=== PATIENT | male | born 1950 | race Caucasian/White ===

== ENCOUNTER 2017-10-25 12:19 | Emergency (ER) | payer OTHER ==
[2017-10-25 13:03] LABS: BASOPHILS % (AUTO) 0.7 %; EOSINOPHILS # (AUTO) 0.1 10^3/uL (0.0-0.7); EOSINOPHILS % (AUTO) 2.3 %; HGB - HEMOGLOBIN 16.1 g/dL (14.0-18.0); LYMPHOCYTES # (AUTO) 2.1 10^3/uL (1.5-3.5); LYMPHOCYTES % (AUTO) 37.1 %; MEAN CORPUSCULAR HEMOGLOBIN 33.2 pg (27.0-31.0); MEAN CORPUSCULAR HGB CONC 34.5 g/dL (32.0-36.0); MEAN CORPUSCULAR VOLUME 96.2 fL (80.0-94.0); MEAN PLATELET VOLUME 9.8 fL (7.4-11.4); MONOCYTES # (AUTO) 0.5 10^3/uL (0.0-1.0); MONOCYTES % (AUTO) 8.8 %; NEUTROPHILS # (AUTO) 2.9 10^3/uL (1.5-6.6); NEUTROPHILS % (AUTO) 51.1 %; PLT - PLATELET COUNT 147 10^3/uL (130-450); RED BLOOD COUNT 4.86 10^6/uL (4.70-6.10); RED CELL DISTRIBUTION WIDTH 12.8 % (12.0-15.0); WHITE BLOOD COUNT 5.7 x10^3/uL (4.8-10.8)
[2017-10-25 13:09] LABS: BILIRUBIN,URINE NEGATIVE (NEGATIVE); GLUCOSE, URINE (UA) NEGATIVE (NEGATIVE); KETONES,URINE (UA) NEGATIVE (NEGATIVE); LEUKOCYTE ESTERASE, URINE NEGATIVE (NEGATIVE); NITRITE,URINE NEGATIVE (NEGATIVE); OCCULT BLOOD,URINE NEGATIVE (NEGATIVE); PROTEIN,URINE NEGATIVE (NEGATIVE); UROBILINOGEN,URINE 0.2 (NORMAL) E.U./dL (NORMAL)
[2017-10-25 13:13] LABS: CLARITY,URINE CLEAR (CLEAR)
[2017-10-25 13:17] LABS: ALBUMIN 4.7 g/dL (3.2-5.5); ALBUMIN/GLOBULIN RATIO 1.7 (1.0-2.2); CALCIUM 8.9 mg/dL (8.5-10.3); CREATININE 0.9 mg/dL (0.6-1.2); TOTAL PROTEIN 7.5 g/dL (6.7-8.2)
--- NOTE | 2017-10-25 13:17 | ED Physician Documentation ---
PD HPI MALE - Stated complaint Stated Complaint: MALE - Chief complaint Chief Complaint: UTI - History obtained from History obtained from: Patient - History of Present Illness Timing - onset: Yesterday Timing - duration: Days (1) Timing - details: Gradual onset, Now resolved Pain level max: 3 Pain level now: 0 Associated symptoms: Hematuria (x2), Testiclar pain (states mild L testicular pain while in the shower yesterday, none today). No: Dysuria, Urinary frequency , Unable to urinate, Discharge, Genital sore / lesion, Scrotal swelling, Abdominal pain, Back pain Similar symptoms before: Has not had sx before Review of Systems Constitutional: denies: Fever, Chills Cardiac: denies: Chest pain / pressure Respiratory: denies: Cough GI: denies: Nausea, Vomiting Skin: denies: Rash Musculoskeletal: denies: Neck pain, Back pain Neurologic: denies: Headache PD PAST MEDICAL HISTORY - Past Medical History Past Medical History: No - Past Surgical History Past Surgical History: No - Present Medications Home Medications: Ambulatory Orders Medication Instructions Recorded Confirmed No Known Home Medications [No 10/25/17 10/25/17 Known Home Medications] - Allergies Allergies/Adverse Reactions: Allergies Allergy/AdvReac Type Severity Reaction Status Date / Time shellfish derived Allergy Hives Verified 10/25/17 12:43 - Living Situation Living Situation: reports: With family Living Arrangement: reports: At home - Social History Does the pt smoke?: Yes Smoking Status: Current every day smoker Does the pt drink ETOH?: Yes ETOH Use: Beer Does the pt have substance abuse?: No PD ED PE NORMAL - Vitals Vital signs reviewed: Yes - General General: Alert and oriented X 3, No acute distress - HEENT HEENT: Moist mucous membranes - Neck Neck: Supple, no meningeal sign - Cardiac Cardiac: RRR, Strong equal pulses - Respiratory Respiratory: No respiratory distress, Clear bilaterally - Abdomen Abdomen: Soft, Non tender, Non distended - Male Male : Other (normal external exam) - Back Back: No CVA TTP - Derm Derm: Warm and dry, No rash - Extremities Extremities: No edema, No calf tenderness / cord - Neuro Neuro: Alert and oriented X 3 Results - Vitals Vitals: Vital Signs - 24 hr 10/25/17 12:37 Temperature 36.9 C Heart Rate 81 Respiratory 16 Rate Blood Pressure 125/81 H O2 Saturation 99 Oxygen O2 Source Room air - Labs Labs: Laboratory Tests 10/25/17 10/25/17 10/25/17 12:45 12:55 12:55 WBC 5.7 RBC 4.86 Hgb 16.1 Hct 46.8 MCV 96.2 H MCH 33.2 H MCHC 34.5 RDW 12.8 Plt Count 147 MPV 9.8 Neut # (Auto) 2.9 Lymph # (Auto) 2.1 [place] # (Auto) 0.5 Eos # (Auto) 0.1 Baso # (Auto) 0.0 Absolute Nucleated RBC 0.00 Nucleated RBC % 0.1 PT INR APTT Sodium 139 Potassium 3.4 L Chloride 101 Carbon Dioxide 30 Anion Gap 8.0 BUN 15 Creatinine 0.9 Estimated GFR (MDRD) 84 L Glucose 73 Calcium 8.9 Total Bilirubin 1.0 AST 26 ALT 22 Alkaline Phosphatase 52 Total Creatine Kinase 225 Total Protein 7.5 Albumin 4.7 Globulin 2.8 Albumin/Globulin Ratio 1.7 Lipase 33 Urine Color YELLOW Urine Clarity CLEAR Urine pH 7.0 Ur Specific [place] 1.010 Urine Protein NEGATIVE Urine Glucose (UA) NEGATIVE Urine Ketones NEGATIVE Urine Occult Blood NEGATIVE Urine Nitrite NEGATIVE Urine Bilirubin NEGATIVE Urine Urobilinogen 0.2 (NORMAL) Ur Leukocyte Esterase NEGATIVE Ur Microscopic Review NOT INDICATED Urine Culture Comments NOT INDICATED 10/25/17 12:55 WBC RBC Hgb Hct MCV MCH MCHC RDW Plt Count MPV Neut # (Auto) Lymph # (Auto) [place] # (Auto) Eos # (Auto) Baso # (Auto) Absolute Nucleated RBC Nucleated RBC % PT 11.2 INR 1.0 APTT 28.3 Sodium Potassium Chloride Carbon Dioxide Anion Gap BUN Creatinine Estimated GFR (MDRD) Glucose Calcium Total Bilirubin AST ALT Alkaline Phosphatase Total Creatine Kinase Total Protein Albumin Globulin Albumin/Globulin Ratio Lipase Urine Color Urine Clarity Urine pH Ur Specific [place] Urine Protein Urine Glucose (UA) Urine Ketones Urine Occult Blood Urine Nitrite Urine Bilirubin Urine Urobilinogen Ur Leukocyte Esterase Ur Microscopic Review Urine Culture Comments PD MEDICAL DECISION MAKING - ED course Complexity details: reviewed results, re-evaluated patient, considered differential, d/w patient ED course: Patient is a 67-year-old male with painless hematuria yesterday. This has since resolved. Asymptomatic today. Normal laboratory testing. Normal urinalysis. Normal testicular exam. Concern for potential bladder cancer, especially given his heavy smoking history. Counseled that he needs referral to urology for a cystoscopy to rule out any sort of bladder cancer. Patient counseled regarding signs and symptoms for which I believe and urgent re- evaluation would be necessary. Patient with good understanding of and agreement to plan and is comfortable going home at this time This document was made in part using voice recognition software. While efforts are made to proofread this document, sound alike and grammatical errors may occur. - Sepsis Event Vital Signs: Vital Signs - 24 hr 10/25/17 12:37 Temperature 36.9 C Heart Rate 81 Respiratory 16 Rate Blood Pressure 125/81 H O2 Saturation 99 Oxygen O2 Source Room air Departure - Departure Disposition: Home, Self Care Clinical Impression: Hematuria Qualifiers: Hematuria type: gross Qualified Code(s): R31.0 - Gross hematuria Condition: Good Instructions: ED Hematuria Follow-Up: Katei Spring PA-C [Primary Care Provider] - Within 1 week Comments: the cause of your symptoms is unclear today. your tests are normal today. You should be referred to urology to see if you need a cystoscopy to evaluate for possible bladder cancer as this can cause blood in your urine intermittently and smoking is a large risk factor.
[2017-10-25 13:37] LABS: PT - PROTHROMBIN TIME 11.2 secs (9.9-12.6)
[2017-10-25 13:54] VITALS: BP 126/83
== END 2017-10-25 13:54 | disposition home or self-care (01) ==
LOC: ED 12:19
DX: R31.0 Gross hematuria (principal); F17.200 Nicotine dependence, unspecified, uncomplicated
CPT/HCPCS: 36415; 80053; 81001; 81003; 82550; 83690; 85025; 85610; 85730; 87086; 99283

== ENCOUNTER 2018-07-06 11:41 | Outpatient (CLI) | payer OTHER ==
[2018-07-06 18:34] LABS: ALBUMIN/GLOBULIN RATIO 1.5 (1.0-2.2); BILIRUBIN,TOTAL 0.5 mg/dL (0.2-1.0); CALCIUM 8.9 mg/dL (8.5-10.3); CREATININE 0.9 mg/dL (0.6-1.2); TOTAL PROTEIN 6.7 g/dL (6.7-8.2)
== END 2018-07-06 11:42 | disposition home or self-care (01) ==
LOC: LAB.F 11:41
PROVIDERS: ATTEND Physician Assistant Medical
DX: E87.6 Hypokalemia (principal)
CPT/HCPCS: 36415; 80053

== ENCOUNTER 2018-08-30 17:15 | Emergency (ER) | payer OTHER ==
--- NOTE | 2018-08-30 17:29 | ED Physician Documentation ---
PD HPI LOWER EXT INJURY - Stated complaint Stated Complaint: RT LEG SWELLING - Chief complaint Chief Complaint: Ext Problem - History obtained from History obtained from: Patient - History of Present Illness PD HPI LOW EXT INJURY LOCATION: Right (RLE pain, radiating up x 2 days with swelling. No injury. No H/O DVT, no CP/SOA) Review of Systems Ten Systems: 10 systems reviewed and negative Constitutional: reports: Reviewed and negative Cardiac: reports: Pedal edema, Calf pain. denies: Chest pain / pressure, P alpitations Respiratory: denies: Dyspnea, Cough, Hemoptysis, Wheezing PD PAST MEDICAL HISTORY - Past Medical History Past Medical History: Yes Cardiovascular: Murmur - Past Surgical History Past Surgical History: No Cardiovascular: Other - Present Medications Home Medications: Ambulatory Orders Medication Instructions Recorded Confirmed No Known Home Medications 10/25/17 08/30/18 - Allergies Allergies/Adverse Reactions: Allergies Allergy/AdvReac Type Severity Reaction Status Date / Time shellfish derived Allergy Hives Verified 08/30/18 17:23 - Social History Does the pt smoke?: Yes Smoking Status: Current every day smoker (slightly less than 1ppd) Does the pt drink ETOH?: Yes ETOH Use: Beer (quit a few days ago) Does the pt have substance abuse?: No - Family History Family history: reports: Non contributory PD ED PE NORMAL - Vitals Vital signs reviewed: Yes - General General: Alert and oriented X 3, No acute distress - HEENT HEENT: PERRL, EOMI - Neck Neck: Supple, no meningeal sign, No bony TTP - Cardiac Cardiac: RRR, No murmur - Respiratory Respiratory: No respiratory distress, Clear bilaterally - Abdomen Abdomen: Normal bowel sounds, Soft, Non tender - Extremities Extremities: Other (Swollen RLE, no tenderness, neg micheal's, no cellulitis) - Neuro Neuro: Alert and oriented X 3, Normal speech - Psych Psych: Normal mood, Normal affect Results - Vitals Vitals: Vital Signs - 24 hr 08/30/18 08/30/18 17:19 18:32 Temperature 36.7 C Heart Rate 63 64 Respiratory 18 14 Rate Blood Pressure 142/76 H 136/70 H O2 Saturation 97 99 Oxygen O2 Source Room air - Rads (name of study) RLE DVT sono Radiology: Final report received (neg for DVT) Departure - Departure Disposition: 01 Home, Self Care Clinical Impression: Right leg swelling Condition: Good Record reviewed to determine appropriate education?: Yes Health Concerns: History and examination are concerning for DVT, there is no DVT present on ultrasound today though. There is no evidence of infection. Plan of Treatment: While there is no apparent emergency medical condition you should follow-up with your physician for further evaluation and treatment and consider repeat ultrasound in 1 week if symptoms are persistent. Take a baby aspirin a day. Care Goals: R/O DVT Assessment: as above Instructions: ED Edema Legs Bilateral Discharge Date/Time: 08/30/18 18:34
--- NOTE | 2018-08-30 18:36 | Ultrasound Report ---
Reason: RLE pain Procedure Date: 08/30/2018 Accession Number: [id number] / [id number] Procedure: US - Duplex Ext Veins Right CPT Code: FULL RESULT: EXAM: RIGHT LOWER EXTREMITY VENOUS ULTRASOUND EXAM DATE: 08/30/2018 05:50 PM. CLINICAL HISTORY: RLE pain. COMPARISON: None. TECHNIQUE: Real-time sonographic vascular imaging was performed by the vp rheumatology through the lower extremity utilizing both color-flow and Doppler spectral analysis. Multiple medicare sales representative static images were saved for review. FINDINGS: Common Femoral Vein (CFV): Normal. CFV-GSV Junction: Normal. Profunda Femoral Vein (PFV): Normal. Femoral Vein (FV) Prox: Normal. Femoral Vein (FV) Mid: Normal. Femoral Vein (FV) Dist: Normal. Popliteal Vein: Normal. Posterior Tibial Veins: Normal. Peroneal Veins: Normal. Contralateral Side CFV: Normal. Other: None. IMPRESSION: No sonographic evidence for deep venous thrombosis. RADIA
[2018-08-30 18:38] VITALS: BP 136/70
== END 2018-08-30 18:34 | disposition home or self-care (01) ==
LOC: ED 17:15
DX: M79.604 Pain in right leg (principal); R60.0 Localized edema; F17.200 Nicotine dependence, unspecified, uncomplicated
CPT/HCPCS: 99282; 99283

== ENCOUNTER 2019-02-10 12:38 | Outpatient (CLI) | payer OTHER ==
[2019-02-10] MEDS ORDERED: IOVERSOL 320 100 ML VIAL IVP ONE ×2 (12:48→14:24)
--- NOTE | 2019-02-11 08:40 | CT Report ---
Reason: GROSS HEMATURIA Procedure Date: 02/10/2019 Accession Number: [id number] / [id number] Procedure: CT - IVP CPT Code: Final Report FULL RESULT: EXAM: CT ABDOMEN AND PELVIS WITHOUT AND WITH CONTRAST (CT IVP) EXAM DATE: 02/10/2019 01:18 PM. CLINICAL HISTORY: Gross hematuria. COMPARISONS: None. TECHNIQUE: Routine helical imaging was performed through the kidneys, ureters and bladder in the precontrast, postcontrast and delayed phase. IV Contrast: OPTIRAY 320; 100 mL. Reconstructions: Coronal and sagittal. In accordance with CT protocol optimization, one or more of the following dose reduction techniques were utilized for this exam: automated exposure control, adjustment of mA and/or KV based on patient size, or use of iterative reconstructive technique. FINDINGS: Lung Bases: Unremarkable. Liver: Normal essentially noncontrast appearance. Gallbladder/Bile Ducts: Unremarkable. Spleen: Normal. Pancreas: Normal. Adrenal Glands: Normal. Kidneys/Bladder: Right Kidney/Ureter: No renal or ureteral stones. No hydronephrosis or hydroureter. No urothelial mass detected. Left Kidney/Ureter: No renal or ureteral stones. No hydronephrosis or hydroureter. No urothelial mass detected with the caveat that the distal ureter is not opacified. Bladder: No stones. There is irregularity of the bladder wall outline posteriorly into the left trigone, near the left ureterovesical junction, partially obscured by lifting of the bladder base due to prostatic enlargement, attention to this recess on cystoscopy. Peritoneal Cavity/Bowel: Normal. No free fluid, free air or adenopathy. No masses or acute inflammatory process. Pelvic Organs: Visualized pelvic organs are unremarkable. Vasculature: Atherosclerotic disease of the aorta with tortuous prominent iliac arteries, not well seen on this study. Bones: No aggressive osseous lesions. Other: None. IMPRESSION: Abnormal appearance of the left posterior bladder, partially obscured by the raised bladder base as described above. Recommendations for direct visualization by cystoscopy with specific attention to this area. RADIA
== END 2019-02-10 12:39 | disposition home or self-care (01) ==
LOC: DI 12:38
PROVIDERS: ATTEND Urology
DX: N32.89 Other specified disorders of bladder (principal); R31.0 Gross hematuria
CPT/HCPCS: 74178; Q9967

== ENCOUNTER 2023-04-23 07:16 | Outpatient (CLI) | payer MEDICARE | END 2023-04-23 07:17 | disposition short-term general hospital (02) | LOC: EMS 07:16 | DX: R41.82 Altered mental status, unspecified (principal); S09.93XA Unspecified injury of face, initial encounter; S09.92XA Unspecified injury of nose, initial encounter; H11.32 Conjunctival hemorrhage, left eye; X58.XXXA Exposure to other specified factors, initial encounter; Y92.002 Bathroom of unspecified non-institutional (private) residence as the place of occurrence of the external cause | CPT/HCPCS: A0425; A0427 ==

== ENCOUNTER 2023-06-24 17:46 | Outpatient (CLI) | payer MEDICARE | END 2023-06-24 23:59 | disposition home or self-care (01) | LOC: EMS 17:46 | DX: N15.9 Renal tubulo-interstitial disease, unspecified (principal); R46.4 Slowness and poor responsiveness | CPT/HCPCS: A0425; A0427 ==

== ENCOUNTER 2023-06-24 18:18 | Inpatient (IN) | payer MEDICARE ==
--- NOTE | 2023-06-24 18:31 | ED Physician Documentation ---
PD HPI ABD PAIN - Stated complaint Stated Complaint: ABNORMAL LABS - History obtained from History obtained from: Patient, EMS - Additional information Additional information: 73-year-old gentleman presents by ambulance. Difficult history because he is encephalopathic. What I am able to ascertain is that he has a history of probably a mitral valve repair. Thinks he has atrial fibrillation and is not on a blood thinner. It sounds like he got sick about 4 to 5 days ago with some confusion, lower abdominal pain, shaking chills. Says that he went to the clinic yesterday and was diagnosed with a UTI. They did blood work and gave him a shot of Rocephin and prescribed Bactrim. He was told to come the emergency department today as blood work done in the clinic was abnormal which at this point includes a CBC with a white count of 21,000 and left shift, CMP with prerenal azotemia and YEIMY with a BUN of 33 and a creatinine of 1.9, his baseline creatinine is 0.9. He had mild transaminitis. Urine culture is pending at this point. PD PAST MEDICAL HISTORY - Past Medical History Cardiovascular: Murmur - Past Surgical History Past Surgical History: No Cardiovascular: Other - Present Medications Home Medications: Ambulatory Orders Medication Instructions Recorded Confirmed No Known Home Medications 10/25/17 08/30/18 - Allergies Allergies/Adverse Reactions: Allergies Allergy/AdvReac Type Severity Reaction Status Date / Time shellfish derived Allergy Hives Verified 06/24/23 19:08 - Social History Does the pt smoke?: Yes Smoking Status: Current every day smoker (slightly less than 1ppd) Does the pt drink ETOH?: Yes Does the pt have substance abuse?: No PD ED PE NORMAL - General General: Other (He is alert and oriented to person and place and time, he is okay with the events but is clearly encephalopathic though with delayed answers and some confusion.) - HEENT HEENT: PERRL, EOMI - Neck Neck: Supple, no meningeal sign, No bony TTP - Cardiac Cardiac: Other (Rapid and irregular without murmur) - Respiratory Respiratory: No respiratory distress, Clear bilaterally - Abdomen Abdomen: Non tender - Back Back: No CVA TTP, No spinal TTP - Derm Derm: Normal color, Warm and dry - Psych Psych: Normal mood, Normal affect Results - Vitals Vitals: Vital Signs - 24 hr 06/24/23 06/24/2324 18:24 18:49 19:00 Temperature 37.2 C Heart Rate 133 H 118 H 96 Respiratory 20 26 H 22 Rate Blood Pressure 119/83 H 110/65 108/68 O2 Saturation 100 95 95 06/24/23 06/24/23 06/24/23 19:05 19:10 19:15 Temperature Heart Rate 92 94 91 Respiratory 25 H 23 24 Rate Blood Pressure 105/79 89/76 L 112/64 O2 Saturation 96 96 96 06/24/23 06/24/23 06/24/23 19:20 19:30 19:45 Temperature Heart Rate 92 92 94 Respiratory 24 25 H 21 Rate Blood Pressure 118/72 120/83 H 120/85 H O2 Saturation 96 97 97 06/24/23 20:05 Temperature Heart Rate 102 H Respiratory 23 Rate Blood Pressure O2 Saturation 99 Oxygen O2 Source Room air - EKG (time done) 1841 EKG releavant findings:: EKG personally interpreted by author of this note. Relevant findings are: Rate: Rate (enter#) (127) Rhythm: Atrial fibrillation [place]: Normal QRS: Normal Ischemia: Q waves. No: ST elevation c/w ischemia Computer interpretation: Agree with computer - Labs Labs: Laboratory Tests 06/24/23 06/24/23 06/24/23 18:35 18:35 18:35 WBC 16.4 H RBC 4.00 L Hgb 12.8 L Hct 38.8 L MCV 97.0 H MCH 32.0 H MCHC 33.0 RDW 13.1 Plt Count 137 MPV 10.6 Neut # (Auto) 12.8 H Lymph # (Auto) 2.0 [place] # (Auto) 1.4 H Eos # (Auto) 0.0 Baso # (Auto) 0.1 Absolute Nucleated RBC 0.00 Nucleated RBC % 0.0 Sodium 133 L Potassium 3.9 Chloride 100 L Carbon Dioxide 25 Anion Gap 8.0 BUN 32 H Creatinine 1.9 H Estimated GFR (MDRD) 35 L Glucose 105 H Lactic Acid 1.0 Calcium 9.2 Total Bilirubin 0.9 AST 63 H ALT 67 H Alkaline Phosphatase 46 Total Protein 6.9 Albumin 4.3 Globulin 2.6 Albumin/Globulin Ratio 1.7 - Rads (name of study) CT KUB demonstrates left perinephric and periureteral stranding with mild hydroureter consistent with pyelonephritis. Relevant Findings:: Final report received, EMP independent interpretation of test Single view chest x-ray demonstrates right basilar opacity favoring atelectasis. Relevant Findings:: Final report received, EMP independent interpretation of test PD Medical Decision Making - ED course ED course: 73-year-old gentleman seen in the clinic yesterday with apparent UTI. Now with likely sepsis from urinary source with encephalopathy and A-fib with RVR. He did receive Rocephin yesterday IM and has been on Bactrim since. There is a culture from the urine pending from yesterday but no results yet. His white count since yesterday has trended down from 21,000->16,000 but has stable YEIMY with creatinine of 1.9 and his baseline of 0.9. He was hydrated with IV fluids and given IV Rocephin after blood cultures. He is also given a dose of diltiazem for the A-fib with RVR. CT was done without significant obstruction and telehealth consultation was placed for admission at 2014. I did update the by phone. Departure - Departure Disposition: 66 [facility] DC/Xfer Clinical Impression: Pyelonephritis, Sepsis, Encephalopathy, Acute kidney injury Condition: Serious
[2023-06-24 18:49] LABS: BASOPHILS # (AUTO) 0.1 10^3/uL (0.0-0.1); BASOPHILS % (AUTO) 0.4 %; EOSINOPHILS % (AUTO) 0.2 %; HCT - HEMATOCRIT 38.8 % (42.0-52.0); HGB - HEMOGLOBIN 12.8 g/dL (14.0-18.0); LYMPHOCYTES % (AUTO) 12.4 %; MEAN PLATELET VOLUME 10.6 fL (7.4-11.4); MONOCYTES # (AUTO) 1.4 10^3/uL (0.0-1.0); MONOCYTES % (AUTO) 8.5 %; NEUTROPHILS # (AUTO) 12.8 10^3/uL (1.5-6.6); NEUTROPHILS % (AUTO) 78.1 %; PLT - PLATELET COUNT 137 10^3/uL (130-450); RED CELL DISTRIBUTION WIDTH 13.1 % (12.0-15.0); WHITE BLOOD COUNT 16.4 x10^3/uL (4.8-10.8)
[2023-06-24] MEDS: diltiaZEM INJ 5 MG/ML VIAL IVP STA (18:50)
[2023-06-24] MEDS: SODIUM CHLORIDE 0.9% 1,000 ML IV STA (18:51)
[2023-06-24] MEDS: cefTRIAXone 1 GM VIAL IVP STA (19:01)
[2023-06-24 19:02] LABS: ALBUMIN 4.3 g/dL (3.2-5.5); ALBUMIN/GLOBULIN RATIO 1.7 (1.0-2.2); BILIRUBIN,TOTAL 0.9 mg/dL (0.2-1.0); CALCIUM 9.2 mg/dL (8.5-10.3); CREATININE 1.9 mg/dL (0.6-1.3); POTASSIUM 3.9 mmol/L (3.5-4.5); TOTAL PROTEIN 6.9 g/dL (6.4-8.9)
--- NOTE | 2023-06-24 20:07 | XRAY Report ---
PROCEDURE: Chest 1V INDICATIONS: Sepsis TECHNIQUE: One view of the chest was acquired. COMPARISON: None. FINDINGS: Surgical changes and devices: Median sternotomy. Lungs and pleura: No pleural effusions or pneumothorax.Mild right basilar opacities. Mediastinum: Mediastinal contours appear normal. Heart size is normal. Bones and chest wall: No suspicious bony lesions. Overlying soft tissues appear unremarkable. IMPRESSION: Mild right basilar opacity favored to represent atelectasis versus aspiration Reviewed by: Rere Peng MD, PhD on 06/24/2023 8:06 PM PDT Approved by: Rere Peng MD, PhD on 06/24/2023 8:06 PM PDT Station ID: [id number]
--- NOTE | 2023-06-24 20:12 | CT Report ---
PROCEDURE: Abdomen/Pelvis WO INDICATIONS: UTI w sepsis TECHNIQUE: A CT scan of the abdomen and pelvis was performed without the use of intravenous contrast. Images we re recorded and evaluated at appropriate window settings. Reformats: coronal and sagittal. For radiat ion dose reduction, the following was used: automated exposure control, adjustment of mA and/or kV ac cording to patient size. COMPARISON: CT dated 02/10/2019. FINDINGS: Image quality: Diagnostic. Lower chest: Bibasilar atelectasis versus scarring. Small hiatal hernia. Normal heart size. Coronary atherosclerosis. Liver: No contour-deforming mass. Gallbladder and biliary tree: No radiopaque stones or wall thickening. No biliary dilation. Spleen: No splenomegaly. Pancreas: No pancreatic ductal dilation. Adrenals: No adrenal nodule. Kidneys and ureters: Right kidney is normal in size without renal stone or hydronephrosis. Normal cou rse and caliber of the right ureter. There is mild prominence of the left proximal ureter with modera te left perinephric stranding. No left-sided renal stones seen. No ureteral stone. Mild proximal anju ureteral stranding. Stomach, bowel and peritoneum: No bowel distension. No pathologic free fluid. Moderate fecal burden s een in the colon. Normal appendix. Lymph nodes: No central or retroperitoneal adenopathy. Vessels: No infrarenal aortic aneurysm. Atherosclerotic vascular calcifications. PELVIS Reproductive organs: Prostatomegaly as before.. Bladder: No wall thickness, accounting for underdistention. Pelvic lymph nodes: No pelvic adenopathy by size criteria. Bones: No aggressive osseous abnormality. No acute compression fracture Other: Tiny fat-containing umbilical hernia without acute inflammation. Small bilateral fat-containin g inguinal hernias without acute inflammation. IMPRESSION: Moderate left perinephric and mild periureteral stranding with mild proximal hydroureter. No obstruct ing mass or stone. Findings may represent ascending urinary tract infection/pyelonephritis. Other chronic findings as above Reviewed by: Jairo Reyes MD on 06/24/2023 8:10 PM PDT Approved by: Jairo Reyes MD on 06/24/2023 8:10 PM PDT Station ID: [id number]
[2023-06-24] MEDS ORDERED: ONDANSETRON 4 MG/2 ML VIAL IVP PRN (21:01)
[2023-06-24] MEDS ORDERED: SODIUM CHLORIDE FLUSH 0.9% 10 ML SYRINGE IVP PRN (21:01)
[2023-06-24] MEDS ORDERED: HYDROmorphone 0.5 MG/0.5 ML SYRINGE IVP PRN (21:01)
[2023-06-24] MEDS ORDERED: ACETAMINOPHEN 325 MG TABLET PO PRN (21:01)
[2023-06-24] MEDS ORDERED: oxyCODONE 5 MG TABLET PO PRN (21:01)
--- NOTE | 2023-06-24 21:17 | HISTORY & PHYSICAL EXAMINATION ---
Chief Complaint - Chief Complaint Chief Complaint: abnormal labs along with abdominal pain History of Present Illness - Admitted From Admitted From:: Home - History Obtained From Records Reviewed: yes History obtained from: Patient, emr and er team Exam Limitations: None - History of Present Illness HPI Comment/Other: 73-year-old gentleman presents by ambulance. Difficult history because he is encephalopathic. What I am able to ascertain is that he has a history of probably a mitral valve repair. Thinks he has atrial fibrillation and is not on a blood thinner. It sounds like he got sick about 4 to 5 days ago with some confusion, lower abdominal pain, shaking chills. Says that he went to the clinic yesterday and was diagnosed with a UTI. They did blood work and gave him a shot of Rocephin and prescribed Bactrim. He was told to come the emergency department today as blood work done in the clinic was abnormal which at this point includes a CBC with a white count of 21,000 and left shift, CMP with prerenal azotemia and YEIMY with a BUN of 33 and a creatinine of 1.9, his baseline creatinine is 0.9. He had mild transaminitis. Urine culture is pending at this point. Patient seen via televideo, informed about me being in [place] and being a telemedicine physician consent obtained for virtual interview. 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, not sure about home meds as per ER hx of Mitral valve repair, got sick on was suppose to go out with daughter on friday for birthday celebration had to cancer due to not feeling well, went to clinic and was told to come to hospital, no hx of renal disease as per patient, slow to answer questions but was able to answer all questions, telemetry shows a fib, looks comfortable, ct scan reviewed concerning of early pyelonephritis History - Past Medical History Cardiovascular: reports: Murmur - Past Surgical History Cardiovascular: reports: Other Meds/Allgy - Home Medications Home Medications: Ambulatory Orders Medication Instructions Recorded Confirmed No Known Home Medications 10/25/17 08/30/18 - Allergies Allergies/Adverse Reactions: Allergies Allergy/AdvReac Type Severity Reaction Status Date / Time shellfish derived Allergy Hives Verified 06/24/23 19:08 Review of Systems - Constitutional Constitutional: reports: Malaise, Weakness - Gastrointestinal Gastrointestinal: reports: Abdominal pain - Psychiatric Psychiatric: reports: Other (slow to respond) Prior Level of Functionality: Independent with ADL Exam - Vital Signs Vital Signs: Vital Signs x48h Temp Pulse Resp BP Pulse Ox 06/24/23 20:05 102 H 23 99 06/24/23 19:45 94 21 120/85 H 97 06/24/23 19:30 92 25 H 120/83 H 97 06/24/23 19:20 92 24 118/72 96 06/24/23 19:15 91 24 112/64 96 06/24/23 19:10 94 23 89/76 L 96 06/24/23 19:05 92 25 H 105/79 96 06/24/23 19:00 96 22 108/68 95 06/24/23 18:49 118 H 26 H 110/65 95 06/24/23 18:24 37.2 C 133 H 20 119/83 H 100 - Physical Exam General Appearance: positive: No acute distress, Alert, Lethargic Eyes Bilateral: positive: Normal inspection, PERRL Neck: positive: Nml inspection Respiratory: positive: Chest non-tender, No respiratory distress Cardiovascular: positive: Irregularly irregular Abdomen: positive: Tenderness Extremities: positive: Full ROM Neurologic/Psychiatric: positive: Oriented x3, CN's nml (2-12) Sepsis Event Note (H) - Evaluation Current Stage of Sepsis: Sepsis Possible source of Sepsis: positive: Genitourinary Conclusion/Plan - Problem List (1) Acute kidney injury Conclusion/Plan: Likely from UTI and pre renal CT shows mild hydro with no obstruction IV abx hydration avoid nephrotoxins repeat labs in am (2) Encephalopathy Conclusion/Plan: resolving as per ER physician was very slow to respond with me on telecart improved continue to monitor clinically treat underlying infection (3) Pyelonephritis Conclusion/Plan: IV Rocephin Follow culture and sensitivty from clinic Blood cultures done in ER FLuids given as per sepsis protocol Lactate is normal (4) Sepsis Conclusion/Plan: IV Rocephin Follow culture and sensitivty from clinic Blood cultures done in ER FLuids given as per sepsis protocol Lactate is normal as above Qualifiers: Sepsis acute organ dysfunction status: with acute organ dysfunction Severe sepsis acute organ dysfunction type: acute renal failure Acute renal failure type: unspecified (5) A-fib Conclusion/Plan: A fib with RBR hr of 127 in ER Improving Cardizem Discuss AC in am ? Mitral valve repair needs to be on ASA Check Echo DVt prophylaxis - Lab Results Fish Bones: 06/24/23 18:35 06/24/23 18:35 - EKG Results EKG Interpreted Independently: Yes - Other Other Results/Comments: A fib with RVR probable old inf OK
[2023-06-24] MEDS: SODIUM CHLORIDE 0.9% 1,000 ML IV SCH (22:46)
[2023-06-24] MEDS: diltiaZEM 30 MG TABLET PO SCH (22:46)
[2023-06-24] MEDS: SODIUM CHLORIDE FLUSH 0.9% 10 ML SYRINGE IVP SCH (23:53)
[2023-06-25 03:02] LABS: BILIRUBIN,URINE NEGATIVE (NEGATIVE); GLUCOSE, URINE (UA) NEGATIVE (NEGATIVE); KETONES,URINE (UA) NEGATIVE (NEGATIVE); LEUKOCYTE ESTERASE, URINE NEGATIVE (NEGATIVE); NITRITE,URINE NEGATIVE (NEGATIVE); OCCULT BLOOD,URINE LARGE (NEGATIVE); PROTEIN,URINE 100 mg/dL (NEGATIVE); UROBILINOGEN,URINE 2 E.U./dL (NORMAL)
[2023-06-25 03:08] LABS: BACTERIA,URINE None Seen /HPF (None Seen); CLARITY,URINE CLEAR (CLEAR); RBC,URINE 0-5 /HPF (0-5); SQUAMOUS EPITHELIAL CELL,UR NONE SEEN (<= Few); WBC,URINE 0-3 /HPF (0-3)
[2023-06-25] MEDS: diltiaZEM 30 MG TABLET PO SCH (05:05)
--- NOTE | 2023-06-25 11:52 | PROVIDER PROGRESS NOTE ---
Subjective - Prog Note Date Prog Note Date: 06/25/23 Prog Note Time: 11:51 - Subjective Subjective: Yesterday he was described as encephalopathic, slow to respond. This morning he is sleepy, tired, but conversation is appropriate. 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 I introduced several conversational topics, the first being who is his DPOA? He thinks his but he is not sure. We also talked about CODE STATUS. He has never had that discussion with his or thought about it for himself. I also asked who would be taking care of him if he were disabled and needing help at home, especially since he is a primary caregiver for his . These were all questions that he had not thought about to any great length. But they were present in his mind. He became tearful as he thought about some of the answers he needed to provide. He is overwhelmed with caregiver burden as it is. And now thinking things out loud for the future is another burden some and heavy topic to think about. I reviewed the CT scan and right kidney is normal in size without stones or hydronephrosis. There is mild prominence of the left proximal ureter with moderate left perinephric stranding. No left-sided renal stones. He has a tiny fat-containing umbilical hernia without any inflammation and small bilateral f at-containing inguinal hernias without inflammation. The urine culture is from June 22 and is growing out gram-positive's. His white cell count in October 2017 was 5.7. Yesterday in the emergency room he was 21,000. This morning he is 16,000. He has not had any fever since admission. Has no appetite. No pain but he just feels like he is full and does not want to eat. No flank pain, no abd pain. Denies cough, sob, cp. He does complain of right leg pain. He has chronic varicose veins. And his right medial ankle and his right medial knee space hurts and stings. No redness or heat. Current Medications - Current Medications Current Medications: Active Medications Acetaminophen (Acetaminophen 325 Mg Tablet) 650 mg PO Q4HR PRN PRN Reason: Pain 1 to 4, or Fever Diltiazem HCl (Diltiazem 30 Mg Tablet) 30 mg PO Q6H [facility] Last Admin: 06/25/23 11:15 Dose: 30 mg Hydromorphone HCl (Hydromorphone 0.5 Mg/0.5 Ml Syringe) 0.5 mg IVP Q2H PRN PRN Reason: Pain 8 to 10 Sodium Chloride (Normal Saline 0.9%) 1,000 mls @ 100 mls/hr IV .Q10H [facility] Last Admin: 06/25/23 09:05 Dose: 100 mls/hr Ceftriaxone Sodium 1 gm/ (Sodium Chloride) 100 mls @ 200 mls/hr IV Q24H [facility] Ondansetron HCl (Ondansetron 4 Mg/2 Ml Vial) 4 mg IVP Q6HR PRN PRN Reason: Nausea / Vomiting Oxycodone HCl (Oxycodone 5 Mg Tablet) 5 mg PO Q4HR PRN PRN Reason: Pain 5 to 7 Sodium Chloride (Sodium Chloride Flush 0.9% 10 Ml Syringe) 10 ml IVP PRN PRN PRN Reason: NEEDED PER PROVIDER ORDERS Sodium Chloride (Sodium Chloride Flush 0.9% 10 Ml Syringe) 10 ml IVP 0100,0900,1700 [facility] Last Admin: 06/25/23 08:11 Dose: 10 ml Rosuvastatin Calcium [Crestor] 40 mg PO HS 06/25/23 Objective - Vital Signs/Intake & Output Reviewed Vital Signs: Yes Vital Signs: Vital Signs x48h Temp Pulse Resp BP BP Pulse Ox 06/25/23 11:18 99 18 121/77 95 06/25/23 11:15 121/77 06/25/23 08:14 37.1 C 83 18 104/66 98 06/25/23 05:05 112/77 06/25/23 05:02 37.5 C 92 20 112/77 94 Intake & Output: Intake & Output 06/22/23 06/23/23 06/24/23 06/25/23 23:59 23:59 23:59 23:59 Intake Total 1000 1240 Balance 1000 1240 - Objective General Appearance: positive: No acute distress (white male, beared, well groomed, looks younger than stated age), Alert, Other (sleepy and slow to speak but able to tell me where he is, what date it is but not why he's here) Eyes Bilateral: positive: PERRL, EOMI ENT: positive: No signs of dehydration Neck: positive: No JVD. negative: Stiff neck Respiratory: positive: No respiratory distress. negative: Wheezes, Rales, Rhonchi Cardiovascular: positive: Irregularly irregular, Tachycardia (at times) Abdomen: positive: Non-tender, No organomegaly, Nml bowel sounds, No distention Back: negative: CVA tenderness (R), CVA tenderness (L) Skin: positive: Warm, Dry Extremities: positive: Full ROM, No pedal edema, Other ( He has bulging varicose veins over the medial surface of his right knee. He has superficial venous perforators that are blanchable as they go down into his malleolar eye. But no redness, heat, swelling.). negative: Joint swelling, Lj's sign/cords Neurologic/Psychiatric: positive: Oriented x3, CN's nml (2-12), Motor nml - Lab Results Fish Bones: 06/25/23 11:57 06/25/23 11:57 Other Labs: Lab Results x24hrs 06/25/23 06/24/23 06/24/23 Range/Units 02:53 18:35 18:35 WBC (4.8-10.8) x10^3/uL RBC (4.70-6.10) 10^6/uL Hgb (14.0-18.0) g/dL Hct (42.0-52.0) % MCV (80.0-94.0) fL MCH (27.0-31.0) pg MCHC (32.0-36.0) g/dL RDW (12.0-15.0) % Plt Count (130-450) 10^3/uL MPV (7.4-11.4) fL Neut # (Auto) (1.5-6.6) 10^3/uL Lymph # (Auto) (1.5-3.5) 10^3/uL [place] # (Auto) (0.0-1.0) 10^3/uL Eos # (Auto) (0.0-0.7) 10^3/uL Baso # (Auto) (0.0-0.1) 10^3/uL Absolute Nucleated RBC x10^3/uL Nucleated RBC % /100WBC Sodium 133 L (135-145) mmol/L Potassium 3.9 (3.5-4.5) mmol/L Chloride 100 L (101-111) mmol/L Carbon Dioxide 25 (21-32) mmol/L Anion Gap 8.0 (6-13) BUN 32 H (6-20) mg/dL Creatinine 1.9 H (0.6-1.3) mg/dL Estimated GFR (MDRD) 35 L (>89) Glucose 105 H (74-104) mg/dL Lactic Acid 1.0 (0.5-2.2) mmol/L Calcium 9.2 (8.5-10.3) mg/dL Total Bilirubin 0.9 (0.2-1.0) mg/dL AST 63 H (10-42) IU/L ALT 67 H (10-60) IU/L Alkaline Phosphatase 46 (42-121) IU/L Total Protein 6.9 (6.4-8.9) g/dL Albumin 4.3 (3.2-5.5) g/dL Globulin 2.6 (2.1-4.2) g/dL Albumin/Globulin Ratio 1.7 (1.0-2.2) Urine Color YELLOW Urine Clarity CLEAR (CLEAR) Urine pH 6.0 (5.0-7.5) PH Ur Specific [place] 1.020 (1.002-1.030) Urine Protein 100 H (NEGATIVE) mg/dL Urine Glucose (UA) NEGATIVE (NEGATIVE) mg/dL Urine Ketones NEGATIVE (NEGATIVE) mg/dL Urine Occult Blood LARGE H (NEGATIVE) Urine Nitrite NEGATIVE (NEGATIVE) Urine Bilirubin NEGATIVE (NEGATIVE) Urine Urobilinogen 2 H (NORMAL) E.U./dL Ur Leukocyte Esterase NEGATIVE (NEGATIVE) Urine RBC 0-5 (0-5) /HPF Urine WBC 0-3 (0-3) /HPF Ur Squamous Epith Cells NONE SEEN (<= Few) Urine Bacteria None Seen (None Seen) /HPF Urine Culture Comments NOT INDICATED 06/24/23 Range/Units 18:35 WBC 16.4 H (4.8-10.8) x10^3/uL RBC 4.00 L (4.70-6.10) 10^6/uL Hgb 12.8 L (14.0-18.0) g/dL Hct 38.8 L (42.0-52.0) % MCV 97.0 H (80.0-94.0) fL MCH 32.0 H (27.0-31.0) pg MCHC 33.0 (32.0-36.0) g/dL RDW 13.1 (12.0-15.0) % Plt Count 137 (130-450) 10^3/uL MPV 10.6 (7.4-11.4) fL Neut # (Auto) 12.8 H (1.5-6.6) 10^3/uL Lymph # (Auto) 2.0 (1.5-3.5) 10^3/uL [place] # (Auto) 1.4 H (0.0-1.0) 10^3/uL Eos # (Auto) 0.0 (0.0-0.7) 10^3/uL Baso # (Auto) 0.1 (0.0-0.1) 10^3/uL Absolute Nucleated RBC 0.00 x10^3/uL Nucleated RBC % 0.0 /100WBC Sodium (135-145) mmol/L Potassium (3.5-4.5) mmol/L Chloride (101-111) mmol/L Carbon Dioxide (21-32) mmol/L Anion Gap (6-13) BUN (6-20) mg/dL Creatinine (0.6-1.3) mg/dL Estimated GFR (MDRD) (>89) Glucose (74-104) mg/dL Lactic Acid (0.5-2.2) mmol/L Calcium (8.5-10.3) mg/dL Total Bilirubin (0.2-1.0) mg/dL AST (10-42) IU/L ALT (10-60) IU/L Alkaline Phosphatase (42-121) IU/L Total Protein (6.4-8.9) g/dL Albumin (3.2-5.5) g/dL Globulin (2.1-4.2) g/dL Albumin/Globulin Ratio (1.0-2.2) Urine Color Urine Clarity (CLEAR) Urine pH (5.0-7.5) PH Ur Specific [place] (1.002-1.030) Urine Protein (NEGATIVE) mg/dL Urine Glucose (UA) (NEGATIVE) mg/dL Urine Ketones (NEGATIVE) mg/dL Urine Occult Blood (NEGATIVE) Urine Nitrite (NEGATIVE) Urine Bilirubin (NEGATIVE) Urine Urobilinogen (NORMAL) E.U./dL Ur Leukocyte Esterase (NEGATIVE) Urine RBC (0-5) /HPF Urine WBC (0-3) /HPF Ur Squamous Epith Cells (<= Few) Urine Bacteria (None Seen) /HPF Urine Culture Comments ABX Reporting Has patient been on IV antibiotics over the past 48 hours?: Yes Sepsis Event Note (H) - Evaluation Current Stage of Sepsis: Sepsis Possible source of Sepsis: positive: Genitourinary - Sepsis Criteria Sepsis Criteria: Recorded Heart Rate greater than 90 bpm (115), Recorded Respiratory Rate greater than 20 (24-26), WBC count greater than 12,000 or less than 4000 (21K), [employer]RI[employer]: altered consciousness (unrelated to primary neuro pathology), SBP drop more than 40mHg (105), SBP less than 90 mmHg (64) Assessment/Plan - Problem List (1) Sepsis Impression: Went to the ER June 22 with lower abdominal pain, shaking chills, confusion. Diagnosis UTI and given Rocephin and sent home. Urine culture grew out gram- positive's. White cell count came back at 21,000 with a left shift. New acute kidney injury identified with a BUN of 33 and a creatinine of 1.9. Asked to come back to the emergency room on the where he was encephalopathic, diffic ult historian because of that. CT scan was done and he has left pyelonephritis. Blood cultures were done in the emergency room and results are pending. Other than gram-positive culture from the [facility] on June 22 no other culture. Since being here the patient sensorium has improved. Much less encephalopathic and more lucid in his conversation. White cell count is usually 5.7. On the he was 21,000. In the ER he was 16,000. And this morning he is 11.4.. Lactic acid was normal.He is no longer tachycardic. Blood pressure is 121/77. All these indicators tell me that his sepsis is resolving or has resolved. Plan: Continue empiric antibiotic therapy with Rocephin. Adjust antibiotics on the basis of culture results. Check PSA Hopefully transition to oral antibiotics once the sensitivities and identification of the bacteria comes back. I estimate he will be here 2 to 3 days before we can change him to oral antibiotics. Hopefully he can then go home. He is very weak and tired but usually describes self is completely independent. Qualifiers: Sepsis acute organ dysfunction status: with acute organ dysfunction Severe sepsis acute organ dysfunction type: acute renal failure Acute renal failure type: unspecified (2) Pyelonephritis Impression: Plan is in problem #1 assessment and plan (3) Acute kidney injury Impression: baseline creatinine is 0.9. In the emergency room he was 1.9. Description of decreased p.o. intake as well as hypotension. This has caused prerenal azotemia with reduced blood flow to the kidneys and most likely resulted in a temporary rise in creatinine. Plan is to hydrate him, avoid nephrotoxic agents and I anticipate improvement by tomorrow. I will review today's BMP once is available (4) Encephalopathy Impression: still slightly fatigued and slow to respond this morning. But but by description, seems to be improved from when he was in the ER. still slightly fatigued and slow to respond this morning. (5) A-fib Impression: History of mitral valve repair. No echo in our system. He does not have a regular primary care provider and tends to be seen in the walk-in clinic [place]. [id number] score shows him to have 1.4 being age 73. 1 point for hypertension. Which gives him a score of greater than or equal to 2 which is a moderate high risk and should otherwise be on anticoagulation. Plan: Discuss with the patient who his ug designer is. How long ago it has been. See if I can get an old echo and compare to echo we have ordered for here. [facility] echo here has been done but final report pending. Qualifiers: Atrial fibrillation type: longstanding persistent Qualified Code(s): I48.11 - Longstanding persistent atrial fibrillation (6) Right leg swelling Impression: His description is more right leg pain and swelling even though swelling was a complaint in the ER. There is no redness, heat, Homans negative. He has a varicose vein that appears to be slightly tender even though it is not hot or red in the left medial knee. Superficial perforators on the right ankle, when pressed, cause him to say "ouch". Plan: Check plain film of the right ankle Check venous Doppler of the right leg (7) Full code status Impression: I have asked patient to please establish DPOA, discussed his CODE STATUS with me after thinking about it this morning, and see if he can do a preliminary discussion about what his future wishes are with regards to care for himself if he becomes disabled.
[2023-06-25 12:04] LABS: BASOPHILS # (AUTO) 0.1 10^3/uL (0.0-0.1); BASOPHILS % (AUTO) 0.5 %; EOSINOPHILS # (AUTO) 0.1 10^3/uL (0.0-0.7); EOSINOPHILS % (AUTO) 0.6 %; HCT - HEMATOCRIT 36.3 % (42.0-52.0); HGB - HEMOGLOBIN 11.7 g/dL (14.0-18.0); LYMPHOCYTES # (AUTO) 1.3 10^3/uL (1.5-3.5); LYMPHOCYTES % (AUTO) 11.2 %; MEAN CORPUSCULAR HEMOGLOBIN 32.3 pg (27.0-31.0); MEAN CORPUSCULAR HGB CONC 32.2 g/dL (32.0-36.0); MEAN CORPUSCULAR VOLUME 100.3 fL (80.0-94.0); MEAN PLATELET VOLUME 10.8 fL (7.4-11.4); MONOCYTES # (AUTO) 1.1 10^3/uL (0.0-1.0); MONOCYTES % (AUTO) 9.7 %; NEUTROPHILS # (AUTO) 8.8 10^3/uL (1.5-6.6); NEUTROPHILS % (AUTO) 77.7 %; PLT - PLATELET COUNT 128 10^3/uL (130-450); RED BLOOD COUNT 3.62 10^6/uL (4.70-6.10); RED CELL DISTRIBUTION WIDTH 13.1 % (12.0-15.0); WHITE BLOOD COUNT 11.4 x10^3/uL (4.8-10.8)
[2023-06-25 12:24] LABS: CALCIUM 8.4 mg/dL (8.5-10.3); CREATININE 1.6 mg/dL (0.6-1.3); POTASSIUM 3.8 mmol/L (3.5-4.5)
--- NOTE | 2023-06-25 12:54 | XRAY Report ---
PROCEDURE: Ankle 1-2V RT INDICATIONS: tender to touch malleoli, w varicose veins TECHNIQUE: 3 views of the ankle were acquired. COMPARISON: None. FINDINGS: Bones: Mild scattered degenerative changes. No acute displaced fracture. No dislocation. Soft tissues: No suspicious calcifications. IMPRESSION: No acute radiographic abnormality. Mild scattered degenerative changes. If there is high concern for further derangement, consider MRI evaluation. Reviewed by: David Olson MD on 06/25/2023 12:53 PM PDT Approved by: David Olson MD on 06/25/2023 12:53 PM PDT Station ID: [id number]
--- NOTE | 2023-06-25 13:06 | PHARMACY PROGRESS NOTE ---
- Best Possible Medication History Admit Date and Time: 06/24/232100 Processed by: Pharmacy Medications reviewed in ED?: No Medication History completed: Yes Patient Interview: Completed Secondary Source(s): Insurance records As the person ultimately responsible for medication therapy, providers are able to order a medication from an existing home medication list in [facility] via the "Reconcile Routine" prior to Confirmation of that medication by application support manager. Such practice is discouraged except when the physician, in their clinical judgment, deems that a medical need exists for a medication without regard to previous use.
[2023-06-25] MEDS: cefTRIAXone 1 GM in SODIUM CHLORIDE 0.9% MINIBAG 100 ML IV SCH (17:12)
--- NOTE | 2023-06-25 19:17 | ADVANCE CARE PLANNING NOTE ---
Advance Care Planning - Planning Encounter Date: 06/25/23 Time: 19:14 Purpose: code status discussion Parties in Attendance: patient and hospitalist Decisional Capacity of the Patient: Alert and oriented to person, place, time and situation - Diagnosis for Encounter (1) Sepsis Summary: patient was admitted with sepsis criteria due to pyelonephritis. Many co nversations regarding his sepsis and treatment. However advance care planning was started this morning. We are now getting back to it again this afternoon because he needed time to think about this morning's conversation. 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 I introduced several conversational topics, the first being who is his DPOA? He thinks his but he is not sure. We also talked about CODE STATUS. He has never had that discussion with his or thought about it for himself. I also asked who would be taking care of him if he were disabled and needing help at home, especially since he is a primary caregiver for his . These were all questions that he had not thought about to any great length. But they were present in his mind. He became tearful as he thought about some of the answers he needed to provide. He is overwhelmed with caregiver burden as it is. And now thinking things out loud for the future is another burden some and heavy topic to think about. This afternoon he has been walking in the hallways. He seems to be doing better but he just feels exhausted. I reintroduced the topics from this morning and he says that he is thinking about having his best friend be the DPOA. And that may be his 's daughter would be her DPOA. But then he has to think about who the POA would be. He has just not decided yet. He initially stated that he wanted to be full code and fully resuscitated. I carefully explained to him the statistics behind a full code. What a full code would look like with regards to CPR, chest compressions, intubation. What the survivability statistics were. And what survivability was defined as. Usually it means getting a pulse or pressure back, not necessarily good brain function or ability to live independently. With that in mind he says he really does not want to be resuscitated then. As long as can be reassured that everything will be done to keep him alive and treat his illnesses he is satisfied with that. It is only at the moment of when he does not have a pulse or pressure, and we have done everything possible to keep him going, that he does not want to be intubated or receive CPR. Objective/Medical Story: Patient describes himself as healthy. He has a history of mitral valve repair in the done at [facility]. He has had atrial fibrillation since then. He was offered anticoagulation for his atrial fibrillation but declined it because at that point in his life he was riding a bicycle, hiking in the mountains, and always cutting himself at work. He last saw the plastic dolls mold filler over a year ago at [facility]. Did not rediscuss anticoagulation. Now presents with sepsis criteria. Seen in the ER, treated and sent home with UTI. He was brought back to the ER when blood cultures are negative, urine cultures positive, and white cell count was elevated. Patient feels tired, fatigued. CT identifies him as having pyelonephritis. Cultures are positive for gram-positive bacteria in the urine. We are awaiting identification and sensitivities. I will adjust antibiotics at that time. Goals of Care: 1. He realizes that he should start thinking about the future. At age 73 he should be discussing important topics with his kids, , and best friends. So he is going to initiate this conversations. Already started 1 conversation with his best friend today. 2. Would like to remain at home for as long as possible and not be a burden to his children 3. Would like to fill out a POLST form today Plan: POLST form filled out. He is a DO NOT RESUSCITATE with limited interventions. Given him the original. It is on his white board in his room with the magnet. I have made a copy and will have the TRAVEL REGISTERED NURSE PACU scan it Now that he is identified that it was a plastic dolls mold filler at [facility], and he sees a plastic dolls mold filler at the [facility], I will call tomorrow and see what their recommendations are for his atrial fibrillation. I have given him a chads Vascor of 2 points. I have explained to him what this means. He says that he really wants to think about anticoagulation and is not quite sure if he wants it. Code Status: Do Not Attempt Resuscitation
--- NOTE | 2023-06-25 23:03 | Ultrasound Report ---
PROCEDURE: Duplex Ext Veins Right INDICATIONS: tender right knee varicose veins TECHNIQUE: Real-time imaging, as well as color and pulse Doppler interrogation, were performed of the lower extr emity deep veins from the inguinal ligament to the popliteal fossa. Attempted visualization of the ca lf veins was performed. COMPARISON: 08/30/2018. FINDINGS: The deep veins are normally compressible, and free of intraluminal thrombus. Color and pu lse Doppler demonstrate normal phasic intraluminal flow. There is normal augmentation response to di stal compression maneuver. Small fluid collection over the lateral aspect of the right knee. IMPRESSION: No deep venous thrombosis of the visualized lower extremity. Reviewed by: Jairo Reyes MD on 06/25/2023 11:02 PM PDT Approved by: Jairo Reyes MD on 06/25/2023 11:02 PM PDT Station ID: [id number]
[2023-06-26 05:29] LABS: BASOPHILS # (AUTO) 0.1 10^3/uL (0.0-0.1); BASOPHILS % (AUTO) 0.8 %; EOSINOPHILS # (AUTO) 0.2 10^3/uL (0.0-0.7); HGB - HEMOGLOBIN 11.3 g/dL (14.0-18.0); LYMPHOCYTES # (AUTO) 1.6 10^3/uL (1.5-3.5); LYMPHOCYTES % (AUTO) 18.2 %; MEAN CORPUSCULAR HEMOGLOBIN 31.7 pg (27.0-31.0); MEAN CORPUSCULAR HGB CONC 32.3 g/dL (32.0-36.0); MEAN CORPUSCULAR VOLUME 98.3 fL (80.0-94.0); MEAN PLATELET VOLUME 10.9 fL (7.4-11.4); MONOCYTES # (AUTO) 0.9 10^3/uL (0.0-1.0); MONOCYTES % (AUTO) 10.4 %; NEUTROPHILS # (AUTO) 5.9 10^3/uL (1.5-6.6); NEUTROPHILS % (AUTO) 68.4 %; PLT - PLATELET COUNT 125 10^3/uL (130-450); RED BLOOD COUNT 3.56 10^6/uL (4.70-6.10); RED CELL DISTRIBUTION WIDTH 12.9 % (12.0-15.0); WHITE BLOOD COUNT 8.6 x10^3/uL (4.8-10.8)
[2023-06-26 05:45] LABS: CALCIUM 8.2 mg/dL (8.5-10.3); CREATININE 1.4 mg/dL (0.6-1.3); POTASSIUM 3.5 mmol/L (3.5-4.5)
[2023-06-26 08:22] VITALS: O2SAT 96
--- NOTE | 2023-06-26 10:19 | Discharge Plan ---
Discharge Plan Problem Reviewed?: Yes Disposition: Home, Self Care Condition: Fair Prescriptions: Ciprofloxacin [Cipro] 500 mg PO Q12H 11 Days #44 tablet Diet: Regular Activity Restrictions: Activity as Tolerated Shower Restrictions: No Driving Restrictions: No Instruction Topics: Stroke Prevent Live W Atrial Fib, Atrial Fibrillation Health Concerns: You describe yourself as a relatively healthy elidia who has history of a mitral valve repair in the through [facility], chronic atrial fibrillation, and high cholesterol. You became suddenly ill with symptoms requiring to go to the walk-in clinic. You were asked to come back when your blood cultures were positive, and your urinalysis was positive for urinary tract infection indicating that you may have sepsis. On your return you did have an elevated white cell count, and blood cultures have grown out a bacteria that we can treat with oral antibiotics. Temporarily your blood pressure was low when you first came to the hospital and you required resuscitation with IV fluids. We did a CAT scan of your abdomen and found you to have an infected kidney. But no kidney stones. You had pyelonephritis. Once you received antibiotics, you started to feel better and have been walking in the hallways, going to the bathroom by yourself, not needing any oxygen. Your white cell count is normal. You do not have a fever. You still have a poor appetite. You feel full and do not really want to eat very much. But we do feel you are stable to go home. While here we did discuss future planning if you become more disabled or if your becomes disabled. After discussing what resuscitative status meant, you have chosen to be DO NOT RESUSCITATE and filled out a POLST form. Plan of Treatment: 1. Please establish yourself with a primary care provider. Although you are relatively healthy you have enough chronic medical conditions that do require regular follow-up. 2. I have given you some information about chronic atrial fibrillation and the risk of stroke. The older you get, the higher the risk at's. Currently your risk is high enough that it requires treatment with a blood thinner to prevent you from having strokes. You state you really need to think about it. You do already talk to your doctor about it when you first had your surgery and did not want treatment at that time. When you turn 74, your risk goes up even higher. At this time I am not giving you prescription for blood thinners since you really feel like you do not want to take when at this time. Again, I urged you to read the material to make an informed decision. 3. You need 11 more days of antibiotic therapy to complete therapy for this current kidney infection. I am sending you home with ciprofloxacin 250 mg tablets. You will take 2 tablets twice a day for the next 11 days. Take an [id number] probiotic to help your bowels while you are taking this antibiotic. 4. To continue future planning, make sure you have identified a DURABLE POWER OF RESEARCH LEADER that will speak for you with regards to healthcare matters if you are unconscious and cannot speak for yourself. Let that person know what you think is important. But you are regarded as good quality of life indicators. So that if you do not have those present, your DURABLE POWER OF RESEARCH LEADER can make a decision about whether to continue treatment or not. 5. In addition to DURABLE POWER OF RESEARCH LEADER, talk to your children and family about what would happen if you could no longer take care of yourself. Will you be living in fci? Will you be living at home and hiring caregivers? Will you be living with one of your children? Or will your children be living with you? 6. You are currently the primary caregiver for your who has emphysema and bipolar disorder. We do worry about you. Social work did go by to talk to you about possible opportunities to help you at this point in time you think you have a handle and have declined any of their help. Care Goals: to complete therapy for recurrent infection Assessment: patient is alert, oriented to person, place, time, and situation No Smoking: If you smoke, Please STOP! Call for help.
--- NOTE | 2023-06-26 11:13 | DISCHARGE SUMMARY ---
Discharge Summary Admit Date: 06/24/23 Discharge Date: 06/26/23 Discharging Provider: Mali Arzate MD Primary Care Provider: no PCP Code Status: Do Not Attempt Resuscitation Condition at Discharge: Fair Discharge Disposition: 01 Home, Self Care - DIAGNOSES Discharge Diagnoses with Status of Each Condition: 1. Sepsis 2. Pyelonephritis 3. Acute kidney injury 4. Encephalopathy from sepsis resolved 5. Chronic atrial fibrillation, without rate control or anticoagulation at patient's request 6. Varicose veins with right leg swelling 7. No primary care provider 8. DO NOT RESUSCITATE status - HPI History of Present Illness: 73-year-old gentleman presents by ambulance. Difficult history because he is encephalopathic. What I am able to ascertain is that he has a history of probably a mitral valve repair. Thinks he has atrial fibrillation and is not on a blood thinner. It sounds like he got sick about 4 to 5 days ago with some confusion, lower abdominal pain, shaking chills. Says that he went to the clinic yesterday and was diagnosed with a UTI. They did blood work and gave him a shot of Rocephin and prescribed Bactrim. He was told to come the emergency department today as blood work done in the clinic was abnormal which at this point includes a CBC with a white count of 21,000 and left shift, CMP with prerenal azotemia and YEIMY with a BUN of 33 and a creatinine of 1.9, his baseline creatinine is 0.9. He had mild transaminitis. Urine culture is pending at this point. Patient seen via televideo, informed about me being in [place] and being a telemedicine physician consent obtained for virtual interview. 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, not sure about home meds as per ER hx of Mitral valve repair, got sick on was suppose to go out with daughter on friday for birthday celebration had to cancer due to not feeling well, went to clinic and was told to come to hospital, no hx of renal disease as per patient, slow to answer questions but was able to answer all questions, telemetry shows a fib, looks comfortable, ct scan reviewed concerning of early pyelonephritis - Past Medical History Cardiovascular: reports: Murmur - Past Surgical History Cardiovascular: reports: Other - CONSULTS | PROCEDURES Procedures: Urine culture from June 22 with Staph aureus Blood cultures from June 23 without growth after [address] with a tiny fat-containing umbilical hernia, small bilateral fat-containing inguinal hernias, pyelonephritis on left kidney without stones or hydronephrosis Chest x-ray with mild right basilar opacity favored to represent atelectasis versus aspiration Ankle x-ray for right ankle pain has no acute radiographic abnormalities. Mild scattered degenerative changes. Venous duplex study right done for varicose vein pain has no DVT of the visualized lower extremities History of mitral valve repair. Echo done shows atrial fibrillation, moderately impaired ejection fraction of 35 to 40%, right ventricular enlargement, mitral valve clip. Abnormally functioning bioprosthetic valve in the mitral position with peak mean pressure gradient of 26 mmHg / 13 mmHg. elevated mean pressure gradient 13 mm. RVSP at rest is 37 mmHg. Severe increase in left atrial volume index to 67 mL/m. - HOSPITAL COURSE Hospital Course: The patient was placed on empiric antibiotic therapy for pyelonephritis and he slowly recovered. He was ambulating in the hallways. Really did not have an appetite and felt like he was "full" every time he tried to eat so he did not eat much while here. When he had no fevers, had a normal white cell count, and urine culture grew out staph aureus from June 22, I felt he was stable to go home on oral quinolones. He will need 2 weeks of complete therapy. And he will be going home on Cipro. While here we began advance care planning conversations. He did fill out a POLST form where he is DNR. I did advise him that his [id number] score is high enough that he should be on anticoagulation for atrial fibrillation. He sees Frank Heath at the [facility] and he said that he was seen a little over a year ago. "Everything was fine" and he does not want to be on anticoagulation. I told him to make sure that he discusses that with a new primary care [place]. [place] him he re ally needs to get 1. I also explained to him that his chads Vascor will get higher next year when he turns 74. As such his risk will get higher. I sent him home with Luis information on atrial fibrillation and anticoagulation. We also checked an echo on him showing that his mitral valve is not working well. I have contacted Dr. Heath's office and left a message for Dr. Heath to please review the echo and see the patient at his discretion. The patient is discharged in stable condition. He is alert, oriented. 5 foot 10 inches tall, 82.5 kg. Ambulating without any assistance. Neck is supple. Lungs are clear. irregular rate and rhythm. The abdomen is soft, nontender. No flank pain. Extremities have superficial venous perforators around both ankles. No edema. He complained of some ankle pain and venous pain while here and a right ankle film is negative and a right venous Doppler is negative for DVT. Greater than 30 minutes was spent coordinating discharge. He spent quite a bit of time sitting in my office going over instructions. This document was made in part using voice recognition software. While efforts are made to proofread this document, sound alike and grammatical errors may occur. - ALLERGIES Allergies/Adverse Reactions: Allergies Allergy/AdvReac Type Severity Reaction Status Date / Time shellfish derived Allergy Hives Verified 06/24/23 19:08 - MEDICATIONS Home Medications: Ambulatory Orders Medication Instructions Recorded Confirmed Rosuvastatin Calcium [Crestor] 40 mg PO HS 06/25/23 06/25/23 Ciprofloxacin [Cipro] 500 mg PO Q12H 11 Days #44 tablet 06/26/23 - LABS Result Diagrams: 06/26/23 05:09 06/26/23 05:09 - SEPSIS Current Stage of Sepsis: Sepsis Possible source of Sepsis: Genitourinary Sepsis Criteria: Recorded Heart Rate greater than 90 bpm (115), Recorded Respiratory Rate greater than 20 (24-26), WBC count greater than 12,000 or less than 4000 (21K), WEARING APPAREL SHAKER: altered consciousness (unrelated to primary neuro pathology), SBP drop more than 40mHg (105), SBP less than 90 mmHg (64)
[2023-06-26 11:19] VITALS: BP 127/79
== END 2023-06-26 11:30 | disposition home or self-care (01) | DRG 872 ==
LOC: EDUNIT# → ED 18:18 → MS2 21:01
PROVIDERS: ADMIT Internal Medicine; ATTEND Specialist
DX: A41.9 Sepsis, unspecified organism (principal); N17.9 Acute kidney failure, unspecified; G93.40 Encephalopathy, unspecified; I48.20 Chronic atrial fibrillation, unspecified; N13.6 Pyonephrosis; I83.891 Varicose veins of right lower extremity with other complications; R01.1 Cardiac murmur, unspecified; I48.91 Unspecified atrial fibrillation; F17.200 Nicotine dependence, unspecified, uncomplicated; R74.01 Elevation of levels of liver transaminase levels; K42.9 Umbilical hernia without obstruction or gangrene; K40.20 Bilateral inguinal hernia, without obstruction or gangrene, not specified as recurrent; M25.571 Pain in right ankle and joints of right foot; M25.561 Pain in right knee; R65.20 Severe sepsis without septic shock; I07.1 Rheumatic tricuspid insufficiency; Z66 Do not resuscitate
CPT/HCPCS: 36415; 71045; 73600; 74176; 80048; 80053; 81001; 83605; 85025; 86140; 87040; 93005; 93307; 93971; 96374; 96375; 99285; A9270; 82962; 87086

== ENCOUNTER 2023-06-29 13:51 | Outpatient (CLI) | payer MEDICARE | END 2023-06-29 23:59 | disposition critical access hospital (66) | LOC: EMS 13:51 | DX: R42 Dizziness and giddiness (principal); R50.9 Fever, unspecified; R46.4 Slowness and poor responsiveness | CPT/HCPCS: A0425; A0427 ==

== ENCOUNTER 2023-06-29 14:22 | Inpatient (IN) | payer MEDICARE ==
--- NOTE | 2023-06-29 14:43 | ED Physician Documentation ---
History of Present Illness - Stated complaint Stated Complaint: R FLANK PX - Chief complaint Chief Complaint: Neuro - History obtained from History obtained from: Patient, EMS - Additonal information Additional information: 73-year-old gentleman with history of mitral valve repair and tobacco use. 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 He developed UTI symptoms and was seen in the clinic last week where subsequently he had a urine culture that grew out Staphylococcus hemolyticus which was resistant to erythromycin and penicillin. Subsequently was referred to the emergency department the next day because he had outpatient labs demonstrating a white count of 21,000 and some YEIMY. He was seen here and he was encephalopathic. CT was done to rule out urinary obstruction which was negative. He did have findings on that CT of left-sided pyelonephritis. He was maintained on antibiotics and discharged on the of this month in better condition. He states that over the last day he has become progressively confused, shaky and out of it. He vacillates as to whether he has any pain but his chief complaint was right flank pain. He does not know if he has fevers or chills. PD PAST MEDICAL HISTORY - Past Medical History Cardiovascular: Atrial flutter, Murmur Respiratory: None Neuro: None Endocrine/Autoimmune: None GI: GERD : None Psych: None Musculoskeletal: Chronic back pain Derm: None - Past Surgical History Past Surgical History: No Cardiovascular: Other - Present Medications Home Medications: Ambulatory Orders Medication Instructions Recorded Confirmed Rosuvastatin Calcium [Crestor] 40 mg PO HS 06/25/23 06/29/23 Ciprofloxacin [Cipro] 500 mg PO Q12H 11 Days #44 tablet 06/26/23 06/29/23 - Allergies Allergies/Adverse Reactions: Allergies Allergy/AdvReac Type Severity Reaction Status Date / Time shellfish derived Allergy Hives Verified 06/29/23 14:33 - Social History Does the pt smoke?: Yes Smoking Status: Current every day smoker Does the pt drink ETOH?: Yes Does the pt have substance abuse?: No PD ED PE NORMAL - Vitals Vital signs reviewed: Yes (Tachycardic, borderline febrile) - General General: Other (Although technically alert and oriented x 3 he is very slow to answer questions and does seem mildly confused.) - Cardiac Cardiac: Other (Tachycardic, irregularly irregular) - Respiratory Respiratory: No respiratory distress, Clear bilaterally - Abdomen Abdomen: Non tender - Extremities Extremities: No edema, No calf tenderness / cord - Neuro Neuro: Alert and oriented X 3 Eye Opening: Spontaneous Motor: Obeys Commands Verbal: Confused GCS Score: 14 Results - Vitals Vitals: Vital Signs - 24 hr 06/29/23 06/29/23 06/29/23 14:34 14:40 15:15 Temperature 37.6 C Heart Rate 123 H 132 H 110 H Respiratory 16 16 16 Rate Blood Pressure 121/75 128/72 128/93 H O2 Saturation 95 99 99 06/29/23 06/29/23 15:25 15:40 Temperature Heart Rate 108 H Respiratory 17 Rate Blood Pressure 125/84 H 110/72 O2 Saturation 93 Oxygen O2 Source Room air - Labs Labs: Laboratory Tests 06/29/23 06/29/23 06/29/23 14:52 14:52 14:52 WBC 29.6 H RBC 4.20 L Hgb 13.3 L Hct 40.1 L MCV 95.5 H MCH 31.7 H MCHC 33.2 RDW 12.6 Plt Count 208 MPV 10.2 Neut # (Auto) Not Reportable Lymph # (Auto) Not Reportable [place] # (Auto) Not Reportable Eos # (Auto) Not Reportable Baso # (Auto) Not Reportable Absolute Nucleated RBC Not Reportable Total Counted 100 Band Neuts % (Manual) 0 Abnorm Lymph % (Manual) 0 Nucleated RBC % Not Reportable Neutrophils # (Manual) 26.0 H Lymphocytes # (Manual) 0.6 L Monocytes # (Manual) 3.0 H Eosinophils # (Manual) 0.0 Basophils # (Manual) 0.0 Differential Comment MANUAL DIFFERENTIAL WBC Morphology NORMAL APPEARANCE Platelet Estimate NORMAL (130-450,000) Platelet Morphology NORMAL APPEARANCE RBC Morph Micro Appear NORMAL APPEARANCE Sodium 131 L Potassium 4.6 H Chloride 99 L Carbon Dioxide 21 Anion Gap 11.0 BUN 42 H Creatinine 4.6 H Estimated GFR (MDRD) 13 L Glucose 139 H Lactic Acid 1.6 Calcium 8.8 Total Bilirubin 0.9 AST 74 H ALT 100 H Alkaline Phosphatase 69 Total Protein 6.5 Albumin 3.9 Globulin 2.6 Albumin/Globulin Ratio 1.5 PD Medical Decision Making - ED course ED course: 73-year-old gentleman presents the emergency department encephalopathic with A- fib with RVR and while not technically febrile, his temperature was 37.6. He had a recent admission for pyelonephritis and was treated and released on Cipro and rosuvastatin. He was on Bactrim for a couple of days prior to that admission. On workup today he has a white count of 29,000 now which is significantly up and worsening YEIMY with creatinine now 4.6. He has no lactic acidosis. He was treated with Rocephin and IV fluids here. Case discussed by phone with Dr. Caban for admission at 4:04 PM. I will add on a CK given the recent addition of the statin that potentially could cause the YEIMY worsening. We did do a bladder scan which had a negligible amount of 71 mL. Patient said that his urine volume was normal and urinated just prior to arrival. Departure - Departure Disposition: 66 [facility] DC/Xfer Clinical Impression: Encephalopathy, Acute kidney injury, Pyelonephritis A-fib Qualifiers: Atrial fibrillation type: unspecified Qualified Code(s): I48.91 - Unspecified atrial fibrillation Condition: Serious Forms: PCP List
[2023-06-29] MEDS: SODIUM CHLORIDE 0.9% 1,000 ML IV STA ×2 (14:47→16:05)
[2023-06-29] MEDS: diltiaZEM INJ 5 MG/ML VIAL IVP STA (14:48)
[2023-06-29 15:00] LABS: BASOPHILS % (AUTO) 0.2 %; HCT - HEMATOCRIT 40.1 % (42.0-52.0); HGB - HEMOGLOBIN 13.3 g/dL (14.0-18.0); LYMPHOCYTES % (AUTO) 3.1 %; MEAN CORPUSCULAR HEMOGLOBIN 31.7 pg (27.0-31.0); MEAN CORPUSCULAR HGB CONC 33.2 g/dL (32.0-36.0); MEAN CORPUSCULAR VOLUME 95.5 fL (80.0-94.0); MEAN PLATELET VOLUME 10.2 fL (7.4-11.4); MONOCYTES % (AUTO) 6.2 %; NEUTROPHILS % (AUTO) 73.2 %; PLT - PLATELET COUNT 208 10^3/uL (130-450); RED CELL DISTRIBUTION WIDTH 12.6 % (12.0-15.0); WHITE BLOOD COUNT 29.6 x10^3/uL (4.8-10.8)
[2023-06-29 15:02] LABS: ABNORMAL LYMPHS % (MANUAL) 0 %; BAND NEUTROPHILS % (MANUAL) 0 %
[2023-06-29 15:10] LABS: ALBUMIN 3.9 g/dL (3.2-5.5); ALBUMIN/GLOBULIN RATIO 1.5 (1.0-2.2); BILIRUBIN,TOTAL 0.9 mg/dL (0.2-1.0); CALCIUM 8.8 mg/dL (8.5-10.3); CREATININE 4.6 mg/dL (0.6-1.3); POTASSIUM 4.6 mmol/L (3.5-4.5); TOTAL PROTEIN 6.5 g/dL (6.4-8.9)
[2023-06-29 15:20] LABS: DIFFERENTIAL COMMENT MANUAL DIFFERENTIAL; LYMPHOCYTES # (MANUAL) 0.6 10^3/uL (1.5-3.5); LYMPHOCYTES % (MANUAL) 2 %; PLATELET ESTIMATE, MANUAL NORMAL (130-450,000) (NORMAL); PLATELET MORPHOLOGY NORMAL APPEARANCE (NORMAL); RBC MORPHOLOGY (MULTIPLE) NORMAL APPEARANCE (NORMAL); WBC MORPHOLOGY (MULTIPLE) NORMAL APPEARANCE (NORMAL)
[2023-06-29] MEDS ORDERED: SODIUM CHLORIDE FLUSH 0.9% 10 ML SYRINGE IVP PRN (16:45)
[2023-06-29] MEDS ORDERED: ONDANSETRON 4 MG/2 ML VIAL IVP PRN (16:45)
--- NOTE | 2023-06-29 16:59 | HISTORY & PHYSICAL EXAMINATION ---
Chief Complaint - Chief Complaint Chief Complaint: Confused History of Present Illness - Admitted From Admitted From:: Came from home to [facility] ED - History Obtained From Records Reviewed: [facility] History obtained from: The pt - History of Present Illness HPI Comment/Other: This is a 73 yo M with history of A fib not on anticoagulation, mitral valve repair and recent hospitalization for acute pyelonephritis, sepsis, A fib with RVR and acute encephalopathy from 06/23 to 06/25 came with confusion. The pt reports that he has been confused since yesterday. His PO intake has not been good and he had N/V. He denies any diarrhea and he is not sure about fever. He has been urinating regularly with good amount. He has been taking medications but it is hard when he is confused and fatigued. 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 Due ot his confusion, he came to ED. ED course: Vital signs showed HR 132. Work up revealed WBC 29.6, Hgb 13.3, Plt 208, Na 131, Cl 99, K 4.6, BUN 46, Cr 4.2, Glucose 139, AST 74 and ALT 100. The pt received NS 2 liters, ceftriaxone 1g IV and diltiazem 10mg IV. History - Past Medical History Cardiovascular: reports: Atrial flutter, Murmur Respiratory: reports: None Neuro: reports: None Endocrine/Autoimmune: reports: None GI: reports: GERD : reports: None Psych: reports: None Musculoskeletal: reports: Chronic back pain Derm: reports: None - Past Surgical History Cardiovascular: reports: Other - Family & Social History Living arrangement: At home Living Situation: With spouse/s.o. - Substance History Use: Uses substance without health or social issues: Tobacco - POLST Patient has POLST: Yes POLST Status: Full Code (He wants to get CPR but if that doesn't work then no further intervention.) Meds/Allgy - Home Medications Home Medications: Ambulatory Orders Medication Instructions Recorded Confirmed Rosuvastatin Calcium [Crestor] 40 mg PO HS 06/25/23 06/29/23 Ciprofloxacin [Cipro] 500 mg PO Q12H 11 Days #44 tablet 06/26/23 06/29/23 - Allergies Allergies/Adverse Reactions: Allergies Allergy/AdvReac Type Severity Reaction Status Date / Time shellfish derived Allergy Hives Verified 06/29/23 14:33 Review of Systems - Constitutional Constitutional: reports: Fatigue - All Other Systems All Other Systems: reports: Reviewed and negative 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 - Vital Signs Reviewed Vital Signs: Yes Vital Signs: Vital Signs x48h Temp Pulse Resp BP Pulse Ox 06/29/23 16:30 109 H 17 132/87 H 94 06/29/23 15:40 110/72 06/29/23 15:25 108 H 17 125/84 H 93 06/29/23 15:15 110 H 16 128/93 H 99 06/29/23 14:40 132 H 16 128/72 99 06/29/23 14:34 37.6 C 123 H 16 121/75 95 - Physical Exam General Appearance: positive: No acute distress, Alert Eyes Bilateral: positive: Normal inspection, EOMI ENT: positive: Dry mucous membranes Neck: positive: Nml inspection, No JVD Respiratory: positive: Chest non-tender, No respiratory distress, Breath sounds nml Cardiovascular: positive: Irregularly irregular, Tachycardia Abdomen: positive: Non-tender, Nml bowel sounds, No distention Skin: positive: Color nml, No rash, Warm, Dry Extremities: positive: Non-tender, Full ROM, Nml appearance, No pedal edema Neurologic/Psychiatric: positive: Oriented x3, Mood/affect nml Sepsis Event Note (H) - Evaluation Current Stage of Sepsis: Sepsis Possible source of Sepsis: positive: Genitourinary - Sepsis Criteria Sepsis Criteria: Recorded Heart Rate greater than 90 bpm, WBC count greater than 12,000 or less than 4000, CUSTODIAL SERVICES MANAGER: altered consciousness (unrelated to primary n euro pathology) Conclusion/Plan - Problem List (1) Sepsis Conclusion/Plan: The pt met severe sepsis criteria with Cr of 4.6. Treat pyelonephritis. Repeat CBC in am. Qualifiers: Sepsis type: sepsis due to unspecified organism Sepsis acute organ dysfunction status: with acute organ dysfunction Severe sepsis acute organ dysfunction type: acute renal failure Acute renal failure type: unspecified Severe sepsis shock status: without septic shock Qualified Code(s): A41.9 - Sepsis, unspecified organism; R65.20 - Severe sepsis without septic shock; N17.9 - Acute kidney failure, unspecified (2) Pyelonephritis Conclusion/Plan: Will continue with IV cipro based on his urine culture. UA is pending at this time but it will not be accurate since he has been taking abx. (3) Acute kidney injury Conclusion/Plan: From sepsis and dehydration with decreased PO intake. IVF and repeat BMP in am. CK is pending at this time. Accurate I's and O's. (4) Atrial fibrillation with RVR Conclusion/Plan: From sepsis and decreased PO intake. This may improve with IVF. Will hold off rate control med for now. (5) Encephalopathy Conclusion/Plan: From sepsis and YEIMY with elevated BUN. Treat the underlying issues. - Lab Results Lab results reviewed: Yes Fish Bones: 06/29/23 14:52 06/29/23 14:52 Core Measures - Anticipated LOS I expect patient to be DC'd or transferred within 96 hours.: Yes - DVT/VTE - Prophylaxis VTE/DVT Prophylaxis med ordered at admit?: Yes
[2023-06-29] MEDS ORDERED: CIPROFLOXACIN 400 MG/200 ML 400 MG/200 ML BAG IV SCH (17:00)
[2023-06-29] MEDS ORDERED: SODIUM CHLORIDE 0.9% 1,000 ML IV SCH (17:00)
[2023-06-29] MEDS: cefTRIAXone 1 GM VIAL IVP STA (17:06)
[2023-06-29 17:13] LABS: BILIRUBIN,URINE SMALL (NEGATIVE); GLUCOSE, URINE (UA) NEGATIVE (NEGATIVE); KETONES,URINE (UA) TRACE mg/dL (NEGATIVE); LEUKOCYTE ESTERASE, URINE TRACE (NEGATIVE); NITRITE,URINE POSITIVE (NEGATIVE); OCCULT BLOOD,URINE LARGE (NEGATIVE); PH,URINE 5.5 PH (5.0-7.5); PROTEIN,URINE >=300 mg/dL (NEGATIVE); UROBILINOGEN,URINE 1 (NORMAL) E.U./dL (NORMAL)
[2023-06-29 17:15] LABS: CLARITY,URINE CLOUDY (CLEAR)
[2023-06-29 17:26] LABS: AMORPHOUS SEDIMENT,UR Moderate /LPF; BACTERIA,URINE Moderate /HPF (None Seen); RBC,URINE TNTC /HPF (0-5); SQUAMOUS EPITHELIAL CELL,UR FEW Squamous (<= Few); WBC,URINE >25 /HPF (0-3)
[2023-06-29] MEDS: SODIUM CHLORIDE FLUSH 0.9% 10 ML SYRINGE IVP SCH (17:34)
[2023-06-29] MEDS ORDERED: METOPROLOL 5 MG/5 ML VIAL IVP PRN (18:12)
[2023-06-29] MEDS: METOPROLOL 5 MG/5 ML VIAL IVP PRN (18:32)
[2023-06-29] MEDS: SODIUM CHLORIDE 0.9% 1,000 ML IV SCH (18:54)
[2023-06-29] MEDS: HEPARIN 5,000 UNIT/ML VIAL SUBQ SCH (22:08)
[2023-06-29] MEDS: ATORVASTATIN 40 MG TABLET PO SCH (22:09)
[2023-06-30] MEDS: ACETAMINOPHEN 325 MG TABLET PO PRN (02:06)
[2023-06-30 07:26] LABS: BASOPHILS # (AUTO) 0.1 10^3/uL (0.0-0.1); BASOPHILS % (AUTO) 0.2 %; EOSINOPHILS % (AUTO) 0.1 %; HCT - HEMATOCRIT 35.3 % (42.0-52.0); HGB - HEMOGLOBIN 11.7 g/dL (14.0-18.0); LYMPHOCYTES # (AUTO) 1.5 10^3/uL (1.5-3.5); LYMPHOCYTES % (AUTO) 7.3 %; MEAN CORPUSCULAR HEMOGLOBIN 31.7 pg (27.0-31.0); MEAN CORPUSCULAR HGB CONC 33.1 g/dL (32.0-36.0); MEAN CORPUSCULAR VOLUME 95.7 fL (80.0-94.0); MEAN PLATELET VOLUME 10.3 fL (7.4-11.4); MONOCYTES # (AUTO) 1.6 10^3/uL (0.0-1.0); NEUTROPHILS # (AUTO) 17.1 10^3/uL (1.5-6.6); NEUTROPHILS % (AUTO) 83.7 %; PLT - PLATELET COUNT 183 10^3/uL (130-450); RED BLOOD COUNT 3.69 10^6/uL (4.70-6.10); WHITE BLOOD COUNT 20.4 x10^3/uL (4.8-10.8)
[2023-06-30 07:27] LABS: CALCIUM 8.2 mg/dL (8.5-10.3); CREATININE 5.5 mg/dL (0.6-1.3); POTASSIUM 4.6 mmol/L (3.5-4.5)
[2023-06-30 07:30] LABS: SLIDE REVIEW? Indicated
[2023-06-30 07:47] LABS: RBC MORPHOLOGY (MULTIPLE) 2+ ANISOCYTOSIS (NORMAL)
--- NOTE | 2023-06-30 09:15 | PHARMACY PROGRESS NOTE ---
- Best Possible Medication History Admit Date and Time: 06/29/23 0175 Processed by: Nursing Secondary Source(s): Previous admit records As the person ultimately responsible for medication therapy, providers are able to order a medication from an existing home medication list in [facility] via the "Reconcile Routine" prior to Confirmation of that medication by instructional support services director. Such practice is discouraged except when the physician, in their clinical judgment, deems that a medical need exists for a medication without regard to previous use.
[2023-06-30] MEDS: cefTRIAXone 1 GM in SODIUM CHLORIDE 0.9% MINIBAG 100 ML IV SCH (10:54)
[2023-06-30] MEDS: LACTOBACILLUS RHAMNOSUS GG CAPSULE PO SCH (10:55)
[2023-06-30] MEDS: METOPROLOL TARTRATE 25 MG TABLET PO SCH (10:55)
--- NOTE | 2023-06-30 11:31 | PROVIDER PROGRESS NOTE ---
Subjective - Prog Note Date Prog Note Date: 06/30/23 Prog Note Time: 11:29 - Subjective Pt reports feeling: Improved Subjective: The pt reports that he is feeling little better since admission with IVF and abx. He still makes good urine. No acute overnight events. No other related symptoms. No other modifying factors. Objective - Vital Signs/Intake & Output Reviewed Vital Signs: Yes Vital Signs: Vital Signs x48h Temp Pulse Resp BP BP Pulse Ox 06/30/23 10:55 128/90 H 06/30/23 08:47 128/90 H 06/30/23 08:36 101 H 20 126/88 H 94 06/30/23 08:31 95 118/81 H 06/30/23 08:24 37.3 C 88 20 123/89 H 92 06/30/23 08:17 115/87 H 06/30/23 08:12 37.0 C 112 H 20 117/82 H 96 Intake & Output: Intake & Output 06/27/23 06/28/23 06/29/23 06/30/23 23:59 23:59 23:59 23:59 Intake Total 1537.5 1420 Balance 1537.5 1420 - Objective General Appearance: positive: No acute distress, Alert Eyes Bilateral: positive: Normal inspection, EOMI ENT: positive: Dry mucous membranes Neck: positive: Nml inspection, No JVD, Trachea midline Respiratory: positive: Chest non-tender, No respiratory distress, Breath sounds nml Cardiovascular: positive: Irregularly irregular, Tachycardia Abdomen: positive: Non-tender, Nml bowel sounds, No distention Skin: positive: Color nml, No rash, Warm, Dry Neurologic/Psychiatric: positive: Oriented x3, Motor nml, Mood/affect nml - Lab Results Fish Bones: 06/30/23 07:08 06/30/23 07:08 Other Labs: Lab Results x24hrs 06/30/23 06/30/23 06/29/23 Range/Units 07:08 07:08 17:10 WBC 20.4 H (4.8-10.8) x10^3/uL RBC 3.69 L (4.70-6.10) 10^6/uL Hgb 11.7 L (14.0-18.0) g/dL Hct 35.3 L (42.0-52.0) % MCV 95.7 H (80.0-94.0) fL MCH 31.7 H (27.0-31.0) pg MCHC 33.1 (32.0-36.0) g/dL RDW 13.0 (12.0-15.0) % Plt Count 183 (130-450) 10^3/uL MPV 10.3 (7.4-11.4) fL Neut # (Auto) 17.1 H Lymph # (Auto) 1.5 Rice # (Auto) 1.6 H Eos # (Auto) 0.0 Baso # (Auto) 0.1 Absolute Nucleated RBC 0.00 Total Counted Band Neuts % (Manual) (0 - 10) % Abnorm Lymph % (Manual) % Nucleated RBC % 0.0 Neutrophils # (Manual) (1.5-6.6) 10^3/uL Lymphocytes # (Manual) (1.5-3.5) 10^3/uL Monocytes # (Manual) (0.0-1.0) 10^3/uL Eosinophils # (Manual) (0-0.7) 10^3/uL Basophils # (Manual) (0-0.1) 10^3/uL Differential Comment Manual Slide Review Indicated WBC Morphology (NORMAL) Platelet Estimate (NORMAL) Platelet Morphology (NORMAL) RBC Morph Micro Appear 2+ ANISOCYTOSIS (NORMAL) Sodium 131 L (135-145) mmol/L Potassium 4.6 H (3.5-4.5) mmol/L Chloride 103 (101-111) mmol/L Carbon Dioxide 19 L (21-32) mmol/L Anion Gap 9.0 (6-13) BUN 48 H (6-20) mg/dL Creatinine 5.5 H (0.6-1.3) mg/dL Estimated GFR (MDRD) 10 L (>89) Glucose 108 H (74-104) mg/dL Lactic Acid (0.5-2.2) mmol/L Calcium 8.2 L (8.5-10.3) mg/dL Total Bilirubin (0.2-1.0) mg/dL AST (10-42) IU/L ALT (10-60) IU/L Alkaline Phosphatase (42-121) IU/L Total Creatine Kinase (30-223) IU/L Total Protein (6.4-8.9) g/dL Albumin (3.2-5.5) g/dL Globulin (2.1-4.2) g/dL Albumin/Globulin Ratio (1.0-2.2) Urine Color RED/BLOODY Urine Clarity CLOUDY (CLEAR) Urine pH 5.5 (5.0-7.5) PH Ur Specific [place] 1.025 (1.002-1.030) Urine Protein >=300 H (NEGATIVE) mg/dL Urine Glucose (UA) NEGATIVE (NEGATIVE) mg/dL Urine Ketones TRACE (NEGATIVE) mg/dL Urine Occult Blood LARGE H (NEGATIVE) Urine Nitrite POSITIVE H (NEGATIVE) Urine Bilirubin SMALL H (NEGATIVE) Urine Urobilinogen 1 (NORMAL) (NORMAL) E.U./dL Ur Leukocyte Esterase TRACE H (NEGATIVE) Urine RBC TNTC H (0-5) /HPF Urine WBC >25 H (0-3) /HPF Ur Squamous Epith Cells FEW Squamous (<= Few) Amorphous Sediment Moderate /LPF Urine Bacteria Moderate H (None Seen) /HPF Ur Microscopic Review INDICATED Urine Culture Comments INDICATED 06/29/23 06/29/23 06/29/23 Range/Units 14:52 14:52 14:52 WBC 29.6 H (4.8-10.8) x10^3/uL RBC 4.20 L (4.70-6.10) 10^6/uL Hgb 13.3 L (14.0-18.0) g/dL Hct 40.1 L (42.0-52.0) % MCV 95.5 H (80.0-94.0) fL MCH 31.7 H (27.0-31.0) pg MCHC 33.2 (32.0-36.0) g/dL RDW 12.6 (12.0-15.0) % Plt Count 208 (130-450) 10^3/uL MPV 10.2 (7.4-11.4) fL Neut # (Auto) Not Reportable Lymph # (Auto) Not Reportable [place] # (Auto) Not Reportable Eos # (Auto) Not Reportable Baso # (Auto) Not Reportable Absolute Nucleated RBC Not Reportable Total Counted 100 Band Neuts % (Manual) 0 (0 - 10) % Abnorm Lymph % (Manual) 0 % Nucleated RBC % Not Reportable Neutrophils # (Manual) 26.0 H (1.5-6.6) 10^3/uL Lymphocytes # (Manual) 0.6 L (1.5-3.5) 10^3/uL Monocytes # (Manual) 3.0 H (0.0-1.0) 10^3/uL Eosinophils # (Manual) 0.0 (0-0.7) 10^3/uL Basophils # (Manual) 0.0 (0-0.1) 10^3/uL Differential Comment MANUAL DIFFERENTIAL Manual Slide Review WBC Morphology NORMAL APPEARANCE (NORMAL) Platelet Estimate NORMAL (130-450,000) (NORMAL) Platelet Morphology NORMAL APPEARANCE (NORMAL) RBC Morph Micro Appear NORMAL APPEARANCE (NORMAL) Sodium 131 L (135-145) mmol/L Potassium 4.6 H (3.5-4.5) mmol/L Chloride 99 L (101-111) mmol/L Carbon Dioxide 21 (21-32) mmol/L Anion Gap 11.0 (6-13) BUN 42 H (6-20) mg/dL Creatinine 4.6 H (0.6-1.3) mg/dL Estimated GFR (MDRD) 13 L (>89) Glucose 139 H (74-104) mg/dL Lactic Acid 1.6 (0.5-2.2) mmol/L Calcium 8.8 (8.5-10.3) mg/dL Total Bilirubin 0.9 (0.2-1.0) mg/dL AST 74 H (10-42) IU/L ALT 100 H (10-60) IU/L Alkaline Phosphatase 69 (42-121) IU/L Total Creatine Kinase (30-223) IU/L Total Protein 6.5 (6.4-8.9) g/dL Albumin 3.9 (3.2-5.5) g/dL Globulin 2.6 (2.1-4.2) g/dL Albumin/Globulin Ratio 1.5 (1.0-2.2) Urine Color Urine Clarity (CLEAR) Urine pH (5.0-7.5) PH Ur Specific [place] (1.002-1.030) Urine Protein (NEGATIVE) mg/dL Urine Glucose (UA) (NEGATIVE) mg/dL Urine Ketones (NEGATIVE) mg/dL Urine Occult Blood (NEGATIVE) Urine Nitrite (NEGATIVE) Urine Bilirubin (NEGATIVE) Urine Urobilinogen (NORMAL) E.U./dL Ur Leukocyte Esterase (NEGATIVE) Urine RBC (0-5) /HPF Urine WBC (0-3) /HPF Ur Squamous Epith Cells (<= Few) Amorphous Sediment /LPF Urine Bacteria (None Seen) /HPF Ur Microscopic Review Urine Culture Comments 06/29/23 Range/Units 14:41 WBC (4.8-10.8) x10^3/uL RBC (4.70-6.10) 10^6/uL Hgb (14.0-18.0) g/dL Hct (42.0-52.0) % MCV (80.0-94.0) fL MCH (27.0-31.0) pg MCHC (32.0-36.0) g/dL RDW (12.0-15.0) % Plt Count (130-450) 10^3/uL MPV (7.4-11.4) fL Neut # (Auto) Lymph # (Auto) Rice # (Auto) Eos # (Auto) Baso # (Auto) Absolute Nucleated RBC Total Counted Band Neuts % (Manual) (0 - 10) % Abnorm Lymph % (Manual) % Nucleated RBC % Neutrophils # (Manual) (1.5-6.6) 10^3/uL Lymphocytes # (Manual) (1.5-3.5) 10^3/uL Monocytes # (Manual) (0.0-1.0) 10^3/uL Eosinophils # (Manual) (0-0.7) 10^3/uL Basophils # (Manual) (0-0.1) 10^3/uL Differential Comment Manual Slide Review WBC Morphology (NORMAL) Platelet Estimate (NORMAL) Platelet Morphology (NORMAL) RBC Morph Micro Appear (NORMAL) Sodium (135-145) mmol/L Potassium (3.5-4.5) mmol/L Chloride (101-111) mmol/L Carbon Dioxide (21-32) mmol/L Anion Gap (6-13) BUN (6-20) mg/dL Creatinine (0.6-1.3) mg/dL Estimated GFR (MDRD) (>89) Glucose (74-104) mg/dL Lactic Acid (0.5-2.2) mmol/L Calcium (8.5-10.3) mg/dL Total Bilirubin (0.2-1.0) mg/dL AST (10-42) IU/L ALT (10-60) IU/L Alkaline Phosphatase (42-121) IU/L Total Creatine Kinase 125 (30-223) IU/L Total Protein (6.4-8.9) g/dL Albumin (3.2-5.5) g/dL Globulin (2.1-4.2) g/dL Albumin/Globulin Ratio (1.0-2.2) Urine Color Urine Clarity (CLEAR) Urine pH (5.0-7.5) PH Ur Specific [place] (1.002-1.030) Urine Protein (NEGATIVE) mg/dL Urine Glucose (UA) (NEGATIVE) mg/dL Urine Ketones (NEGATIVE) mg/dL Urine Occult Blood (NEGATIVE) Urine Nitrite (NEGATIVE) Urine Bilirubin (NEGATIVE) Urine Urobilinogen (NORMAL) E.U./dL Ur Leukocyte Esterase (NEGATIVE) Urine RBC (0-5) /HPF Urine WBC (0-3) /HPF Ur Squamous Epith Cells (<= Few) Amorphous Sediment /LPF Urine Bacteria (None Seen) /HPF Ur Microscopic Review Urine Culture Comments ABX Reporting Has patient been on IV antibiotics over the past 48 hours?: Yes Sepsis Event Note (H) - Evaluation Current Stage of Sepsis: Sepsis Possible source of Sepsis: positive: Genitourinary - Sepsis Criteria Sepsis Criteria: Recorded Heart Rate greater than 90 bpm, WBC count greater than 12,000 or less than 4000, GATE WATCH: altered consciousness (unrelated to primary neuro pathology) Assessment/Plan - Problem List (1) Sepsis Impression: Sepsis parameters are improving. Continue with IV abx. Repeat CBC and CMP in am. Qualifiers: Sepsis type: sepsis due to unspecified organism Sepsis acute organ dy sfunction status: with acute organ dysfunction Severe sepsis acute organ dysfunction type: acute renal failure Acute renal failure type: unspecified Severe sepsis shock status: without septic shock Qualified Code(s): A41.9 - Sepsis, unspecified organism; R65.20 - Severe sepsis without septic shock; N17.9 - Acute kidney failure, unspecified (2) Pyelonephritis Impression: Stable. Continue with ceftriaxone. Will follow urine culture results. (3) Acute kidney injury Impression: Cr is going up but his UOP is okay. I think we can monitor him 1-2 more days as long as he makes good urine. will continue with IVF and repeat CMP in am. (4) Atrial fibrillation with RVR Impression: Started PO metoprolol today. With his reduced EF, will change to toprol XL. (5) Encephalopathy Impression: Stabilized. (6) Transaminitis Impression: Repeat CMP tomorrow. It has been getting little worse since his last hospital stay. Could be medication related.
[2023-06-30] MEDS: METOPROLOL SUCCINATE 25 MG TABLET PO SCH (13:10)
[2023-07-01 05:57] LABS: BASOPHILS # (AUTO) 0.1 10^3/uL (0.0-0.1); BASOPHILS % (AUTO) 0.5 %; EOSINOPHILS # (AUTO) 0.1 10^3/uL (0.0-0.7); EOSINOPHILS % (AUTO) 0.9 %; HCT - HEMATOCRIT 35.2 % (42.0-52.0); HGB - HEMOGLOBIN 11.4 g/dL (14.0-18.0); LYMPHOCYTES # (AUTO) 1.2 10^3/uL (1.5-3.5); LYMPHOCYTES % (AUTO) 8.8 %; MEAN CORPUSCULAR HEMOGLOBIN 31.6 pg (27.0-31.0); MEAN CORPUSCULAR HGB CONC 32.4 g/dL (32.0-36.0); MEAN CORPUSCULAR VOLUME 97.5 fL (80.0-94.0); MEAN PLATELET VOLUME 10.3 fL (7.4-11.4); MONOCYTES % (AUTO) 7.5 %; NEUTROPHILS # (AUTO) 11.2 10^3/uL (1.5-6.6); NEUTROPHILS % (AUTO) 81.7 %; PLT - PLATELET COUNT 187 10^3/uL (130-450); RED BLOOD COUNT 3.61 10^6/uL (4.70-6.10); WHITE BLOOD COUNT 13.8 x10^3/uL (4.8-10.8)
[2023-07-01 06:14] LABS: ALBUMIN 3.1 g/dL (3.2-5.5); ALBUMIN/GLOBULIN RATIO 1.3 (1.0-2.2); BILIRUBIN,TOTAL 0.6 mg/dL (0.2-1.0); CREATININE 6.2 mg/dL (0.6-1.3); POTASSIUM 4.2 mmol/L (3.5-4.5); TOTAL PROTEIN 5.4 g/dL (6.4-8.9)
[2023-07-01] MEDS: polyethylene glycoL 3350 17 GM PACKET PO SCH (08:54)
[2023-07-01] MEDS: SENNA 8.6 MG TABLET PO SCH (16:19)
[2023-07-01] MEDS: DOCUSATE SODIUM 250 MG CAPSULE PO SCH (16:19)
--- NOTE | 2023-07-01 17:15 | PROVIDER PROGRESS NOTE ---
Assessment/Plan - Problem List (1) Sepsis Qualifiers: Sepsis type: sepsis due to unspecified organism Sepsis acute organ dysfunction status: with acute organ dysfunction Severe sepsis acute organ dysfunction type: acute renal failure Acute renal failure type: unspecified Severe sepsis shock status: without septic shock Qualified Code(s): A41.9 - Sepsis, unspecified organism; R65.20 - Severe sepsis without septic shock; N17.9 - Acute kidney failure, unspecified Assessment/Plan: Sepsis parameters are improving. Continue ceftriaxone. Qualifiers: Sepsis type: sepsis due to unspecified organism Sepsis acute organ dysfunction status: with acute organ dysfunction Severe sepsis acute organ dysfunction type: acute renal failure Acute renal failure type: unspecified Severe sepsis shock status: without septic shock Qualified Code(s): A41.9 - Sepsis, unspecified organism; R65.20 - Severe sepsis without septic shock; N17.9 - Acute kidney failure, unspecified (2) Pyelonephritis Impression: Continue ceftriaxone. (3) Acute kidney injury Impression: Creatinine has increased from 5.5 to 6.2. Continue to monitor BUNs/creatinine. Patient continues to make urine. Continue normal saline at 100 mL/hour. (4) Atrial fibrillation with RVR Impression: Continue metoprolol 25 mg daily. (5) Encephalopathy Impression: Stabilized. (6) Transaminitis Impression: Transaminitis appears to be improving as demonstrated by a decrease in the AST and ALT. - Current Meds Current Meds: Current Medications Generic Name Dose Route Start Last Admin Trade Name Freq PRN Reason Stop Dose Admin Acetaminophen 650 mg 06/29/23 16:45 07/01/23 16:20 Acetaminophen 325 Mg Tablet PO 650 mg Q4HR PRN Administration Pain 1 to 4, or Fever Atorvastatin Calcium 80 mg 06/29/23 21:00 06/30/23 21:03 Atorvastatin 40 Mg Tablet PO 80 mg QPM SLOAN Administration Docusate Sodium 250 - 500 mg 07/01/23 16:00 07/01/23 16:19 Docusate Sodium 250 Mg Capsule PO 250 mg DAILY SLOAN Administration Heparin Sodium (Porcine) 5,000 unit 06/29/23 21:00 07/01/23 08:54 Heparin 5,000 Unit/Ml Vial SUBQ 5,000 unit BID SLOAN Administration Ceftriaxone Sodium 1 gm/ 100 mls @ 200 mls/hr 06/30/23 09:00 07/01/23 09:30 Sodium Chloride IV Infused DAILY SLOAN Infusion Sodium Chloride 1,000 mls @ 100 mls/hr 06/29/23 19:00 07/01/23 12:41 Normal Saline 0.9% IV 100 mls/hr .Q10H SLOAN Administration Lactobacillus Rhamnosus 1 cap 06/30/23 09:00 07/01/23 08:54 Lactobacillus Rhamnosus Gg Capsule PO 1 cap DAILY SLOAN Administration Metoprolol Succinate 25 mg 06/30/23 12:00 07/01/23 08:54 Metoprolol Succinate 25 Mg Tablet PO 25 mg DAILY SLOAN Administration Metoprolol Tartrate 5 mg 06/29/23 18:21 06/30/23 08:17 Metoprolol 5 Mg/5 Ml Vial IVP 5 mg Q6H PRN Administration Tachycardia Polyethylene Glycol 17 gm 07/01/23 09:00 07/01/23 08:54 Polyethylene Glycol 3350 17 Gm Packet PO 17 gm DAILY SLOAN Administration Senna 8.6 - 17.2 mg 07/01/23 16:00 07/01/23 16:19 Senna 8.6 Mg Tablet PO 8.6 mg DAILY SLOAN Administration Sodium Chloride 10 ml 06/29/23 17:00 07/01/23 17:11 Sodium Chloride Flush 0.9% 10 Ml Syringe IVP Not Given 0100,0900,1700 SLOAN - Lab Result Fish Bone Diagrams: 07/01/23 05:26 07/01/23 05:26 Subjective - Subjective Patient Reports: Other Objective Vital Signs: Vital Signs - 24 hr 06/30/23 06/30/23 07/01/23 20:18 23:46 05:12 Temperature 37.0 C 37.0 C 36.7 C Heart Rate [ 93 106 H 77 Brachial] Respiratory 20 18 18 Rate Blood Pressure 138/80 H 120/81 H 110/83 H [Right Brachial artery] O2 Saturation 95 92 95 07/01/23 07/01/23 07/01/23 08:01 12:05 16:01 Temperature 36.8 C 36.5 C 37.1 C Heart Rate [ 78 80 62 Brachial] Respiratory 20 18 18 Rate Blood Pressure 137/67 H 130/81 H 139/90 H [Right Brachial artery] O2 Saturation 97 93 99 Oxygen O2 Source Room air I&O (Last 24 Hrs): Intake and Output Totals x24h 04/06/30/23 07/01/23 23:59 23:59 23:59 Intake Total 1537.5 3140 2950 Output Total 100 825 Balance 1537.5 3040 2125 General: Alert, Oriented x3 Neck: Supple, No JVD Neuro: Alert, Non Focal Cardiovascular: Other Respiratory: Other Abdomen: Other Extremities: No clubbing, No cyanosis, No edema Skin: No rashes - Results Results: Laboratory Results WBC 13.8 x10^3/uL (4.8-10.8) H 07/01/23 05:26 RBC 3.61 10^6/uL (4.70-6.10) L 07/01/23 05:26 Hgb 11.4 g/dL (14.0-18.0) L 07/01/23 05:26 Hct 35.2 % (42.0-52.0) L 07/01/23 05:26 MCV 97.5 fL (80.0-94.0) H 07/01/23 05:26 MCH 31.6 pg (27.0-31.0) H 07/01/23 05:26 MCHC 32.4 g/dL (32.0-36.0) 07/01/23 05:26 RDW 13.0 % (12.0-15.0) 07/01/23 05:26 Plt Count 187 10^3/uL (130-450) 07/01/23 05:26 MPV 10.3 fL (7.4-11.4) 07/01/23 05:26 Neut # (Auto) 11.2 10^3/uL (1.5-6.6) H 07/01/23 05:26 Lymph # (Auto) 1.2 10^3/uL (1.5-3.5) L 07/01/23 05:26 [place] # (Auto) 1.0 10^3/uL (0.0-1.0) 07/01/23 05:26 Eos # (Auto) 0.1 10^3/uL (0.0-0.7) 07/01/23 05:26 Baso # (Auto) 0.1 10^3/uL (0.0-0.1) 07/01/23 05:26 Absolute Nucleated RBC 0.00 x10^3/uL 07/01/23 05:26 Total Counted 100 06/29/23 14:52 Band Neuts % (Manual) 0 % (0-10) 06/29/23 14:52 Abnorm Lymph % (Manual) 0 % 06/29/23 14:52 Nucleated RBC % 0.0 /100WBC 07/01/23 05:26 Neutrophils # (Manual) 26.0 10^3/uL (1.5-6.6) H 06/29/23 14:52 Lymphocytes # (Manual) 0.6 10^3/uL (1.5-3.5) L 06/29/23 14:52 Monocytes # (Manual) 3.0 10^3/uL (0.0-1.0) H 06/29/23 14:52 Eosinophils # (Manual) 0.0 10^3/uL (0-0.7) 06/29/23 14:52 Basophils # (Manual) 0.0 10^3/uL (0-0.1) 06/29/23 14:52 Differential Comment MANUAL DIFFERENTIAL 06/29/23 14:52 Manual Slide Review Indicated 06/30/23 07:08 WBC Morphology NORMAL APPEARANCE (NORMAL) 06/29/23 14:52 Platelet Estimate NORMAL (130-450,000) (NORMAL) 06/29/23 14:52 Platelet Morphology NORMAL APPEARANCE (NORMAL) 06/29/23 14:52 RBC Morph Micro Appear 2+ ANISOCYTOSIS (NORMAL) 06/30/23 07:08 Sodium 132 mmol/L (135-145) L 07/01/23 05:26 Potassium 4.2 mmol/L (3.5-4.5) 07/01/23 05:26 Chloride 104 mmol/L (101-111) 07/01/23 05:26 Carbon Dioxide 18 mmol/L (21-32) L 07/01/23 05:26 Anion Gap 10.0 (6-13) 07/01/23 05:26 BUN 55 mg/dL (6-20) H 07/01/23 05:26 Creatinine 6.2 mg/dL (0.6-1.3) H 07/01/23 05:26 Estimated GFR (MDRD) 9 (>89) L 07/01/23 05:26 Glucose 95 mg/dL (74-104) 07/01/23 05:26 Lactic Acid 1.6 mmol/L (0.5-2.2) 06/29/23 14:52 Calcium 8.0 mg/dL (8.5-10.3) L 07/01/23 05:26 Total Bilirubin 0.6 mg/dL (0.2-1.0) 07/01/23 05:26 AST 52 IU/L (10-42) H 07/01/23 05:26 ALT 67 IU/L (10-60) H 07/01/23 05:26 Alkaline Phosphatase 68 IU/L (42-121) 07/01/23 05:26 Total Creatine Kinase 125 IU/L (30-223) 06/29/23 14:41 Total Protein 5.4 g/dL (6.4-8.9) L 07/01/23 05:26 Albumin 3.1 g/dL (3.2-5.5) L 07/01/23 05:26 Globulin 2.3 g/dL (2.1-4.2) 07/01/23 05:26 Albumin/Globulin Ratio 1.3 (1.0-2.2) 07/01/23 05:26 Urine Color RED/BLOODY 06/29/23 17:10 Urine Clarity CLOUDY (CLEAR) 06/29/23 17:10 Urine pH 5.5 PH (5.0-7.5) 06/29/23 17:10 Ur Specific [place] 1.025 (1.002-1.030) 06/29/23 17:10 Urine Protein >=300 mg/dL (NEGATIVE) H 06/29/23 17:10 Urine Glucose (UA) NEGATIVE mg/dL (NEGATIVE) 06/29/23 17:10 Urine Ketones TRACE mg/dL (NEGATIVE) 06/29/23 17:10 Urine Occult Blood LARGE (NEGATIVE) H 06/29/23 17:10 Urine Nitrite POSITIVE (NEGATIVE) H 06/29/23 17:10 Urine Bilirubin SMALL (NEGATIVE) H 06/29/23 17:10 Urine Urobilinogen 1 (NORMAL) E.U./dL (NORMAL) 06/29/23 17:10 Ur Leukocyte Esterase TRACE (NEGATIVE) H 06/29/23 17:10 Urine RBC TNTC /HPF (0-5) H 06/29/23 17:10 Urine WBC >25 /HPF (0-3) H 06/29/23 17:10 Ur Squamous Epith Cells FEW Squamous (<= Few) 06/29/23 17:10 Amorphous Sediment Moderate /LPF 06/29/23 17:10 Urine Bacteria Moderate /HPF (None Seen) H 06/29/23 17:10 Ur Microscopic Review INDICATED 06/29/23 17:10 Urine Culture Comments INDICATED 06/29/23 17:10 Sepsis Event Note (H) - Evaluation Current Stage of Sepsis: Sepsis Possible source of Sepsis: positive: Genitourinary - Sepsis Criteria Sepsis Criteria: Recorded Heart Rate greater than 90 bpm, WBC count greater than 12,000 or less than 4000, [employer] PICKLER: altered consciousness (unrelated to primary neuro pathology) ABX Reporting Has patient been on IV antibiotics over the past 48 hours?: Yes
[2023-07-02 04:51] LABS: BASOPHILS # (AUTO) 0.1 10^3/uL (0.0-0.1); BASOPHILS % (AUTO) 0.5 %; EOSINOPHILS # (AUTO) 0.2 10^3/uL (0.0-0.7); EOSINOPHILS % (AUTO) 1.6 %; HCT - HEMATOCRIT 32.6 % (42.0-52.0); HGB - HEMOGLOBIN 10.6 g/dL (14.0-18.0); LYMPHOCYTES # (AUTO) 1.2 10^3/uL (1.5-3.5); LYMPHOCYTES % (AUTO) 13.1 %; MEAN CORPUSCULAR HEMOGLOBIN 31.3 pg (27.0-31.0); MEAN CORPUSCULAR HGB CONC 32.5 g/dL (32.0-36.0); MEAN CORPUSCULAR VOLUME 96.2 fL (80.0-94.0); MONOCYTES # (AUTO) 0.9 10^3/uL (0.0-1.0); MONOCYTES % (AUTO) 9.7 %; NEUTROPHILS % (AUTO) 74.8 %; PLT - PLATELET COUNT 191 10^3/uL (130-450); RED BLOOD COUNT 3.39 10^6/uL (4.70-6.10); RED CELL DISTRIBUTION WIDTH 12.9 % (12.0-15.0); WHITE BLOOD COUNT 9.4 x10^3/uL (4.8-10.8)
[2023-07-02 07:33] LABS: CALCIUM 7.9 mg/dL (8.5-10.3); CREATININE 6.6 mg/dL (0.6-1.3); MAGNESIUM 1.9 mg/dL (1.7-2.3); POTASSIUM 4.3 mmol/L (3.5-4.5)
--- NOTE | 2023-07-02 17:28 | PROVIDER PROGRESS NOTE ---
Assessment/Plan - Problem List (1) Sepsis Qualifiers: Sepsis type: sepsis due to unspecified organism Sepsis acute organ dysfunction status: with acute organ dysfunction Severe sepsis acute organ dysfunction type: acute renal failure Acute renal failure type: unspecified Severe sepsis shock status: without septic shock Qualified Code(s): A41.9 - Sepsis, unspecified organism; R65.20 - Severe sepsis without septic shock; N17.9 - Acute kidney failure, unspecified Assessment/Plan: Sepsis parameters are improving. Continue ceftriaxone. Qualifiers: Sepsis type: sepsis due to unspecified organism Sepsis acute organ dysfunction status: with acute organ dysfunction Severe sepsis acute organ dysfunction type: acute renal failure Acute renal failure type: unspecified Severe sepsis shock status: without septic shock Qualified Code(s): A41.9 - Sepsis, unspecified organism; R65.20 - Severe sepsis without septic shock; N17.9 - Acute kidney failure, unspecified (2) Pyelonephritis Impression: Continue ceftriaxone. (3) Acute kidney injury Impression: Creatinine has increased from 6.2 to 6.6. Continue to monitor BUNs/creatinine. Patient continues to make urine. Continue normal saline at 100 mL/hour.Give 500 mL bolus. (4) Atrial fibrillation with RVR Impression: Continue metoprolol 25 mg daily. (5) Encephalopathy Impression: Stabilized. (6) Transaminitis Impression: Transaminitis appears to be improving as demonstrated by a decrease in the AST and ALT. (7) Disposition Impression: Patient continues to require meet requirements for hospitalizations given the fact that he has acute kidney injury with a current creatinine of 6.6. He continues to make urine and is not a candidate for dialysis at this time. - Current Meds Current Meds: Current Medications Generic Name Dose Route Start Last Admin Trade Name Freq PRN Reason Stop Dose Admin Acetaminophen 650 mg 06/29/23 16:45 07/02/23 00:20 Acetaminophen 325 Mg Tablet PO 650 mg Q4HR PRN Administration Pain 1 to 4, or Fever Atorvastatin Calcium 80 mg 06/29/23 21:00 07/01/23 20:39 Atorvastatin 40 Mg Tablet PO 80 mg QPM SLOAN Administration Docusate Sodium 250 - 500 mg 07/01/23 16:00 07/02/23 09:26 Docusate Sodium 250 Mg Capsule PO 250 mg DAILY SLOAN Administration Heparin Sodium (Porcine) 5,000 unit 06/29/23 21:00 07/02/23 09:27 Heparin 5,000 Unit/Ml Vial SUBQ 5,000 unit BID SLOAN Administration Ceftriaxone Sodium 1 gm/ 100 mls @ 200 mls/hr 06/30/23 09:00 07/02/23 09:30 Sodium Chloride IV Infused DAILY SLOAN Infusion Sodium Chloride 1,000 mls @ 100 mls/hr 06/29/23 19:00 07/02/23 09:30 Normal Saline 0.9% IV 100 mls/hr .Q10H SLOAN Administration Lactobacillus Rhamnosus 1 cap 06/30/23 09:00 07/02/23 09:26 Lactobacillus Rhamnosus Gg Capsule PO 1 cap DAILY SLOAN Administration Metoprolol Succinate 25 mg 06/30/23 12:00 07/02/23 09:26 Metoprolol Succinate 25 Mg Tablet PO 25 mg DAILY SLOAN Administration Metoprolol Tartrate 5 mg 06/29/23 18:21 06/30/23 08:17 Metoprolol 5 Mg/5 Ml Vial IVP 5 mg Q6H PRN Administration Tachycardia Polyethylene Glycol 17 gm 07/01/23 09:00 07/02/23 09:29 Polyethylene Glycol 3350 17 Gm Packet PO Not Given DAILY SLOAN Senna 8.6 - 17.2 mg 07/01/23 16:00 07/02/23 09:29 Senna 8.6 Mg Tablet PO Not Given DAILY SLOAN Sodium Chloride 10 ml 06/29/23 17:00 07/02/23 09:29 Sodium Chloride Flush 0.9% 10 Ml Syringe IVP Not Given 0100,0900,1700 SLOAN - Lab Result Fish Bone Diagrams: 07/02/23 04:35 07/02/23 04:35 Subjective - Subjective Patient Reports: Other (Alert. He denies chest pain, shortness of breath. He denies abdominal pain, nausea and vomiting. He has no other complaints at this time.) Objective Vital Signs: Vital Signs - 24 hr 07/01/23 07/01/23 07/01/23 17:30 21:00 23:41 Temperature 36.7 C 36.8 C Heart Rate [ 105 H 103 H 91 Monitoring electrodes] Respiratory 18 18 Rate Blood Pressure 117/92 H 133/100 H 128/82 H [Right Brachial artery] O2 Saturation 97 97 07/02/23 07/02/23 07/02/23 03:21 07:35 12:45 Temperature 36.7 C 36.1 C L 36.6 C Heart Rate [ 85 86 90 Monitoring electrodes] Respiratory 18 18 18 Rate Blood Pressure 124/81 H 127/89 H 152/87 H [Right Brachial artery] O2 Saturation 95 97 98 07/02/23 16:29 Temperature 36.8 C Heart Rate [ 104 H Monitoring electrodes] Respiratory 20 Rate Blood Pressure 153/88 H [Right Brachial artery] O2 Saturation 96 Oxygen O2 Source Room air I&O (Last 24 Hrs): Intake and Output Totals x24h 06/30/23 07/01/23 07/02/23 23:59 23:59 23:59 Intake Total 3140 4903.333 2340 Output Total 100 1225 1200 Balance 3040 3678.333 1140 General: Alert, Oriented x3, No acute distress HEENT: Atraumatic Neck: No JVD, No thyromegaly Neuro: Alert, Non Focal Cardiovascular: Other (Positive S1-S2 no extra heart sounds.) Respiratory: Other (Good air exchange in all lung panda no wheezing no crackles .) Abdomen: Other (Soft nontender nondistended positive bowel sounds.) Genitourinary: Other (Penis with no erythema/rash. No significant edema.) Extremities: No cyanosis, No edema Skin: No rashes - Results Results: Laboratory Results WBC 9.4 x10^3/uL (4.8-10.8) 07/02/23 04:35 RBC 3.39 10^6/uL (4.70-6.10) L 07/02/23 04:35 Hgb 10.6 g/dL (14.0-18.0) L 07/02/23 04:35 Hct 32.6 % (42.0-52.0) L 07/02/23 04:35 MCV 96.2 fL (80.0-94.0) H 07/02/23 04:35 MCH 31.3 pg (27.0-31.0) H 07/02/23 04:35 MCHC 32.5 g/dL (32.0-36.0) 07/02/23 04:35 RDW 12.9 % (12.0-15.0) 07/02/23 04:35 Plt Count 191 10^3/uL (130-450) 07/02/23 04:35 MPV 10.0 fL (7.4-11.4) 07/02/23 04:35 Neut # (Auto) 7.0 10^3/uL (1.5-6.6) H 07/02/23 04:35 Lymph # (Auto) 1.2 10^3/uL (1.5-3.5) L 07/02/23 04:35 [place] # (Auto) 0.9 10^3/uL (0.0-1.0) 07/02/23 04:35 Eos # (Auto) 0.2 10^3/uL (0.0-0.7) 07/02/23 04:35 Baso # (Auto) 0.1 10^3/uL (0.0-0.1) 07/02/23 04:35 Absolute Nucleated RBC 0.00 x10^3/uL 07/02/23 04:35 Total Counted 100 06/29/23 14:52 Band Neuts % (Manual) 0 % (0-10) 06/29/23 14:52 Abnorm Lymph % (Manual) 0 % 06/29/23 14:52 Nucleated RBC % 0.0 /100WBC 07/02/23 04:35 Neutrophils # (Manual) 26.0 10^3/uL (1.5-6.6) H 06/29/23 14:52 Lymphocytes # (Manual) 0.6 10^3/uL (1.5-3.5) L 06/29/23 14:52 Monocytes # (Manual) 3.0 10^3/uL (0.0-1.0) H 06/29/23 14:52 Eosinophils # (Manual) 0.0 10^3/uL (0-0.7) 06/29/23 14:52 Basophils # (Manual) 0.0 10^3/uL (0-0.1) 06/29/23 14:52 Differential Comment MANUAL DIFFERENTIAL 06/29/23 14:52 Manual Slide Review Indicated 06/30/23 07:08 WBC Morphology NORMAL APPEARANCE (NORMAL) 06/29/23 14:52 Platelet Estimate NORMAL (130-450,000) (NORMAL) 06/29/23 14:52 Platelet Morphology NORMAL APPEARANCE (NORMAL) 06/29/23 14:52 RBC Morph Micro Appear 2+ ANISOCYTOSIS (NORMAL) 06/30/23 07:08 Sodium 131 mmol/L (135-145) L 07/02/23 04:35 Potassium 4.3 mmol/L (3.5-4.5) 07/02/23 04:35 Chloride 105 mmol/L (101-111) 07/02/23 04:35 Carbon Dioxide 18 mmol/L (21-32) L 07/02/23 04:35 Anion Gap 8.0 (6-13) 07/02/23 04:35 BUN 62 mg/dL (6-20) H 07/02/23 04:35 Creatinine 6.6 mg/dL (0.6-1.3) H 07/02/23 04:35 Estimated GFR (MDRD) 8 (>89) L 07/02/23 04:35 Glucose 91 mg/dL (74-104) 07/02/23 04:35 Lactic Acid 1.6 mmol/L (0.5-2.2) 06/29/23 14:52 Calcium 7.9 mg/dL (8.5-10.3) L 07/02/23 04:35 Phosphorus 5.0 mg/dL (2.5-5.0) 07/02/23 04:35 Magnesium 1.9 mg/dL (1.7-2.3) 07/02/23 04:35 Total Bilirubin 0.6 mg/dL (0.2-1.0) 07/01/23 05:26 AST 52 IU/L (10-42) H 07/01/23 05:26 ALT 67 IU/L (10-60) H 07/01/23 05:26 Alkaline Phosphatase 68 IU/L (42-121) 07/01/23 05:26 Total Creatine Kinase 125 IU/L (30-223) 06/29/23 14:41 Total Protein 5.4 g/dL (6.4-8.9) L 07/01/23 05:26 Albumin 3.1 g/dL (3.2-5.5) L 07/01/23 05:26 Globulin 2.3 g/dL (2.1-4.2) 07/01/23 05:26 Albumin/Globulin Ratio 1.3 (1.0-2.2) 07/01/23 05:26 Urine Color RED/BLOODY 06/29/23 17:10 Urine Clarity CLOUDY (CLEAR) 06/29/23 17:10 Urine pH 5.5 PH (5.0-7.5) 06/29/23 17:10 Ur Specific [place] 1.025 (1.002-1.030) 06/29/23 17:10 Urine Protein >=300 mg/dL (NEGATIVE) H 06/29/23 17:10 Urine Glucose (UA) NEGATIVE mg/dL (NEGATIVE) 06/29/23 17:10 Urine Ketones TRACE mg/dL (NEGATIVE) 06/29/23 17:10 Urine Occult Blood LARGE (NEGATIVE) H 06/29/23 17:10 Urine Nitrite POSITIVE (NEGATIVE) H 06/29/23 17:10 Urine Bilirubin SMALL (NEGATIVE) H 06/29/23 17:10 Urine Urobilinogen 1 (NORMAL) E.U./dL (NORMAL) 06/29/23 17:10 Ur Leukocyte Esterase TRACE (NEGATIVE) H 06/29/23 17:10 Urine RBC TNTC /HPF (0-5) H 06/29/23 17:10 Urine WBC >25 /HPF (0-3) H 06/29/23 17:10 Ur Squamous Epith Cells FEW Squamous (<= Few) 06/29/23 17:10 Amorphous Sediment Moderate /LPF 06/29/23 17:10 Urine Bacteria Moderate /HPF (None Seen) H 06/29/23 17:10 Ur Microscopic Review INDICATED 06/29/23 17:10 Urine Culture Comments INDICATED 06/29/23 17:10 Sepsis Event Note (H) - Evaluation Current Stage of Sepsis: Sepsis Possible source of Sepsis: positive: Genitourinary - Sepsis Criteria Sepsis Criteria: Recorded Heart Rate greater than 90 bpm, WBC count greater than 12,000 or less than 4000, 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
[2023-07-02] MEDS: SODIUM CHLORIDE 0.9% 500 ML IV ONE (21:03)
[2023-07-03 05:41] LABS: CALCIUM 8.1 mg/dL (8.5-10.3); CREATININE 6.5 mg/dL (0.6-1.3); MAGNESIUM 1.9 mg/dL (1.7-2.3); PHOSPHORUS 4.8 mg/dL (2.5-5.0); POTASSIUM 4.2 mmol/L (3.5-4.5)
--- NOTE | 2023-07-03 17:01 | PROVIDER PROGRESS NOTE ---
Assessment/Plan - Problem List (1) Sepsis Qualifiers: Sepsis type: sepsis due to unspecified organism Sepsis acute organ dysfunction status: with acute organ dysfunction Severe sepsis acute organ dysfunction type: acute renal failure Acute renal failure type: unspecified Severe sepsis shock status: without septic shock Qualified Code(s): A41.9 - Sepsis, unspecified organism; R65.20 - Severe sepsis without septic shock; N17.9 - Acute kidney failure, unspecified Assessment/Plan: Sepsis parameters are improving. Continue ceftriaxone. Qualifiers: Sepsis type: sepsis due to unspecified organism Sepsis acute organ dysfunction status: with acute organ dysfunction Severe sepsis acute organ dysfunction type: acute renal failure Acute renal failure type: unspecified Severe sepsis shock status: without septic shock Qualified Code(s): A41.9 - Sepsis, unspecified organism; R65.20 - Severe sepsis without septic shock; N17.9 - Acute kidney failure, unspecified (2) Pyelonephritis Impression: Continue ceftriaxone. (3) Acute kidney injury Impression: Creatinine appears to have reache a plateau of 6.5. Continue to monitor BUNs/creatinine. Patient continues to make urine. Continue normal saline at 100 mL/hour.Give another 500 mL bolus. (4) Atrial fibrillation with RVR Impression: Continue metoprolol 25 mg daily. (5) Encephalopathy Impression: Stabilized. (6) Transaminitis Impression: Transaminitis appears to be improving as demonstrated by a decrease in the AST and ALT. (7) Disposition Impression: Patient continues to require meet requirements for hospitalizations given the fact that he has acute kidney injury with a current creatinine of 6.5. He continues to make urine and is not a candidate for dialysis at this time. - Current Meds Current Meds: Current Medications Generic Name Dose Route Start Last Admin Trade Name Freq PRN Reason Stop Dose Admin Acetaminophen 650 mg 06/29/23 16:45 07/02/23 20:17 Acetaminophen 325 Mg Tablet PO 650 mg Q4HR PRN Administration Pain 1 to 4, or Fever Atorvastatin Calcium 80 mg 06/29/23 21:00 07/02/23 21:17 Atorvastatin 40 Mg Tablet PO 80 mg QPM SLOAN Administration Docusate Sodium 250 - 500 mg 07/01/23 16:00 07/03/23 11:11 Docusate Sodium 250 Mg Capsule PO Not Given DAILY SLOAN Heparin Sodium (Porcine) 5,000 unit 06/29/23 21:00 07/03/23 08:59 Heparin 5,000 Unit/Ml Vial SUBQ 5,000 unit BID SLOAN Administration Ceftriaxone Sodium 1 gm/ 100 mls @ 200 mls/hr 06/30/23 09:00 07/03/23 11:12 Sodium Chloride IV Infused DAILY SLOAN Infusion Sodium Chloride 1,000 mls @ 100 mls/hr 06/29/23 19:00 07/03/23 11:12 Normal Saline 0.9% IV 100 mls/hr .Q10H SLOAN Administration Lactobacillus Rhamnosus 1 cap 06/30/23 09:00 07/03/23 08:58 Lactobacillus Rhamnosus Gg Capsule PO 1 cap DAILY SLOAN Administration Metoprolol Succinate 25 mg 06/30/23 12:00 07/03/23 08:58 Metoprolol Succinate 25 Mg Tablet PO 25 mg DAILY SLOAN Administration Metoprolol Tartrate 5 mg 06/29/23 18:21 06/30/23 08:17 Metoprolol 5 Mg/5 Ml Vial IVP 5 mg Q6H PRN Administration Tachycardia Polyethylene Glycol 17 gm 07/01/23 09:00 07/03/23 11:11 Polyethylene Glycol 3350 17 Gm Packet PO Not Given DAILY SLOAN Senna 8.6 - 17.2 mg 07/01/23 16:00 07/03/23 11:12 Senna 8.6 Mg Tablet PO Not Given DAILY SLOAN Sodium Chloride 10 ml 06/29/23 17:00 07/03/23 08:58 Sodium Chloride Flush 0.9% 10 Ml Syringe IVP 10 ml 0100,0900,1700 SLOAN Administration - Lab Result Fish Bone Diagrams: 07/02/23 04:35 07/03/23 04:56 Subjective - Subjective Patient Reports: Other (Alert. Denies chest pain, shortness of breath and abdominal pain. No significant changes compared to yesterday.) Objective Vital Signs: Vital Signs - 24 hr 07/02/23 07/02/23 07/03/23 20:37 20:38 00:47 Temperature 37.0 C 36.6 C Heart Rate [ 104 H 108 H 102 H Monitoring electrodes] Respiratory 24 22 Rate Blood Pressure 139/97 H 132/95 H 136/72 H [Right Brachial artery] O2 Saturation 96 97 07/03/23 07/03/23 07/03/23 04:47 07:55 11:18 Temperature 36.7 C 36.9 C 36.5 C Heart Rate [ 89 97 85 Monitoring electrodes] Respiratory 20 20 18 Rate Blood Pressure 121/80 143/88 H 142/95 H [Right Brachial artery] O2 Saturation 96 96 94 07/03/23 16:33 Temperature 36.7 C Heart Rate [ 76 Monitoring electrodes] Respiratory 24 Rate Blood Pressure 153/99 H [Right Brachial artery] O2 Saturation 99 Oxygen O2 Source Room air I&O (Last 24 Hrs): Intake and Output Totals x24h 07/01/23 07/02/23 07/03/23 23:59 23:59 23:59 Intake Total 4903.333 4239.5 2940.5 Output Total 1225 1650 1530 Balance 3678.333 2589.5 1410.5 General: Alert, Oriented x3, No acute distress HEENT: Atraumatic Neck: No JVD, No thyromegaly Neuro: Alert, Non Focal Cardiovascular: Other (Positive S1-S2 no extra heart sounds.) Respiratory: Other (Good air exchange in all lung panda no wheezing no crackles) Abdomen: Other (Soft nontender nondistended positive bowel sounds) Extremities: No cyanosis, No edema Skin: No rashes - Results Results: Laboratory Results WBC 9.4 x10^3/uL (4.8-10.8) 07/02/23 04:35 RBC 3.39 10^6/uL (4.70-6.10) L 07/02/23 04:35 Hgb 10.6 g/dL (14.0-18.0) L 07/02/23 04:35 Hct 32.6 % (42.0-52.0) L 07/02/23 04:35 MCV 96.2 fL (80.0-94.0) H 07/02/23 04:35 MCH 31.3 pg (27.0-31.0) H 07/02/23 04:35 MCHC 32.5 g/dL (32.0-36.0) 07/02/23 04:35 RDW 12.9 % (12.0-15.0) 07/02/23 04:35 Plt Count 191 10^3/uL (130-450) 07/02/23 04:35 MPV 10.0 fL (7.4-11.4) 07/02/23 04:35 Neut # (Auto) 7.0 10^3/uL (1.5-6.6) H 07/02/23 04:35 Lymph # (Auto) 1.2 10^3/uL (1.5-3.5) L 07/02/23 04:35 [place] # (Auto) 0.9 10^3/uL (0.0-1.0) 07/02/23 04:35 Eos # (Auto) 0.2 10^3/uL (0.0-0.7) 07/02/23 04:35 Baso # (Auto) 0.1 10^3/uL (0.0-0.1) 07/02/23 04:35 Absolute Nucleated RBC 0.00 x10^3/uL 07/02/23 04:35 Total Counted 100 06/29/23 14:52 Band Neuts % (Manual) 0 % (0-10) 06/29/23 14:52 Abnorm Lymph % (Manual) 0 % 06/29/23 14:52 Nucleated RBC % 0.0 /100WBC 07/02/23 04:35 Neutrophils # (Manual) 26.0 10^3/uL (1.5-6.6) H 06/29/23 14:52 Lymphocytes # (Manual) 0.6 10^3/uL (1.5-3.5) L 06/29/23 14:52 Monocytes # (Manual) 3.0 10^3/uL (0.0-1.0) H 06/29/23 14:52 Eosinophils # (Manual) 0.0 10^3/uL (0-0.7) 06/29/23 14:52 Basophils # (Manual) 0.0 10^3/uL (0-0.1) 06/29/23 14:52 Differential Comment MANUAL DIFFERENTIAL 06/29/23 14:52 Manual Slide Review Indicated 06/30/23 07:08 WBC Morphology NORMAL APPEARANCE (NORMAL) 06/29/23 14:52 Platelet Estimate NORMAL (130-450,000) (NORMAL) 06/29/23 14:52 Platelet Morphology NORMAL APPEARANCE (NORMAL) 06/29/23 14:52 RBC Morph Micro Appear 2+ ANISOCYTOSIS (NORMAL) 06/30/23 07:08 Sodium 132 mmol/L (135-145) L 07/03/23 04:56 Potassium 4.2 mmol/L (3.5-4.5) 07/03/23 04:56 Chloride 105 mmol/L (101-111) 07/03/23 04:56 Carbon Dioxide 18 mmol/L (21-32) L 07/03/23 04:56 Anion Gap 9.0 (6-13) 07/03/23 04:56 BUN 58 mg/dL (6-20) H 07/03/23 04:56 Creatinine 6.5 mg/dL (0.6-1.3) H 07/03/23 04:56 Estimated GFR (MDRD) 8 (>89) L 07/03/23 04:56 Glucose 85 mg/dL (74-104) 07/03/23 04:56 Lactic Acid 1.6 mmol/L (0.5-2.2) 06/29/23 14:52 Calcium 8.1 mg/dL (8.5-10.3) L 07/03/23 04:56 Phosphorus 4.8 mg/dL (2.5-5.0) 07/03/23 04:56 Magnesium 1.9 mg/dL (1.7-2.3) 07/03/23 04:56 Total Bilirubin 0.6 mg/dL (0.2-1.0) 07/01/23 05:26 AST 52 IU/L (10-42) H 07/01/23 05:26 ALT 67 IU/L (10-60) H 07/01/23 05:26 Alkaline Phosphatase 68 IU/L (42-121) 07/01/23 05:26 Total Creatine Kinase 125 IU/L (30-223) 06/29/23 14:41 Total Protein 5.4 g/dL (6.4-8.9) L 07/01/23 05:26 Albumin 3.1 g/dL (3.2-5.5) L 07/01/23 05:26 Globulin 2.3 g/dL (2.1-4.2) 07/01/23 05:26 Albumin/Globulin Ratio 1.3 (1.0-2.2) 07/01/23 05:26 Urine Color RED/BLOODY 06/29/23 17:10 Urine Clarity CLOUDY (CLEAR) 06/29/23 17:10 Urine pH 5.5 PH (5.0-7.5) 06/29/23 17:10 Ur Specific [place] 1.025 (1.002-1.030) 06/29/23 17:10 Urine Protein >=300 mg/dL (NEGATIVE) H 06/29/23 17:10 Urine Glucose (UA) NEGATIVE mg/dL (NEGATIVE) 06/29/23 17:10 Urine Ketones TRACE mg/dL (NEGATIVE) 06/29/23 17:10 Urine Occult Blood LARGE (NEGATIVE) H 06/29/23 17:10 Urine Nitrite POSITIVE (NEGATIVE) H 06/29/23 17:10 Urine Bilirubin SMALL (NEGATIVE) H 06/29/23 17:10 Urine Urobilinogen 1 (NORMAL) E.U./dL (NORMAL) 06/29/23 17:10 Ur Leukocyte Esterase TRACE (NEGATIVE) H 06/29/23 17:10 Urine RBC TNTC /HPF (0-5) H 06/29/23 17:10 Urine WBC >25 /HPF (0-3) H 06/29/23 17:10 Ur Squamous Epith Cells FEW Squamous (<= Few) 06/29/23 17:10 Amorphous Sediment Moderate /LPF 06/29/23 17:10 Urine Bacteria Moderate /HPF (None Seen) H 06/29/23 17:10 Ur Microscopic Review INDICATED 06/29/23 17:10 Urine Culture Comments INDICATED 06/29/23 17:10 Sepsis Event Note (H) - Evaluation Current Stage of Sepsis: Sepsis Possible source of Sepsis: positive: Genitourinary - Sepsis Criteria Sepsis Criteria: Recorded Heart Rate greater than 90 bpm, WBC count greater than 12,000 or less than 4000, 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
[2023-07-03] MEDS: SODIUM CHLORIDE 0.9% 500 ML IV ONE (17:40)
[2023-07-03 18:47] LABS: CALCIUM 8.2 mg/dL (8.5-10.3); CREATININE 6.6 mg/dL (0.6-1.3); POTASSIUM 4.3 mmol/L (3.5-4.5)
[2023-07-04 05:54] LABS: ALBUMIN 3.1 g/dL (3.2-5.5); ALBUMIN/GLOBULIN RATIO 1.4 (1.0-2.2); BILIRUBIN,TOTAL 0.5 mg/dL (0.2-1.0); CALCIUM 8.3 mg/dL (8.5-10.3); CREATININE 6.8 mg/dL (0.6-1.3); POTASSIUM 4.4 mmol/L (3.5-4.5); TOTAL PROTEIN 5.3 g/dL (6.4-8.9)
[2023-07-04 13:32] LABS: BASOPHILS # (AUTO) 0.1 10^3/uL (0.0-0.1); BASOPHILS % (AUTO) 0.6 %; EOSINOPHILS # (AUTO) 0.2 10^3/uL (0.0-0.7); EOSINOPHILS % (AUTO) 2.1 %; HCT - HEMATOCRIT 41.5 % (42.0-52.0); HGB - HEMOGLOBIN 13.2 g/dL (14.0-18.0); LYMPHOCYTES # (AUTO) 1.4 10^3/uL (1.5-3.5); LYMPHOCYTES % (AUTO) 12.1 %; MEAN CORPUSCULAR HGB CONC 31.8 g/dL (32.0-36.0); MEAN CORPUSCULAR VOLUME 97.4 fL (80.0-94.0); MEAN PLATELET VOLUME 9.4 fL (7.4-11.4); MONOCYTES # (AUTO) 0.9 10^3/uL (0.0-1.0); MONOCYTES % (AUTO) 7.6 %; NEUTROPHILS % (AUTO) 77.2 %; PLT - PLATELET COUNT 304 10^3/uL (130-450); RED BLOOD COUNT 4.26 10^6/uL (4.70-6.10); RED CELL DISTRIBUTION WIDTH 13.2 % (12.0-15.0); WHITE BLOOD COUNT 11.6 x10^3/uL (4.8-10.8)
[2023-07-04] MEDS: SODIUM CHLORIDE 0.9% 500 ML IV ONE (17:31)
[2023-07-04] MEDS: SODIUM CHLORIDE 0.9% 1,000 ML IV SCH (18:05)
--- NOTE | 2023-07-04 21:25 | PROVIDER PROGRESS NOTE ---
Assessment/Plan - Problem List (1) Sepsis Qualifiers: Sepsis type: sepsis due to unspecified organism Sepsis acute organ dysfunction status: with acute organ dysfunction Severe sepsis acute organ dysfunction type: acute renal failure Acute renal failure type: unspecified Severe sepsis shock status: without septic shock Qualified Code(s): A41.9 - Sepsis, unspecified organism; R65.20 - Severe sepsis without septic shock; N17.9 - Acute kidney failure, unspecified Assessment/Plan: Sepsis parameters are improving. Continue ceftriaxone for 7 days. Patient should receive 2 more days of treatment. Qualifiers: Sepsis type: sepsis due to unspecified organism Sepsis acute organ dysfunction status: with acute organ dysfunction Severe sepsis acute organ dysfunction type: acute renal failure Acute renal failure type: unspecified Severe sepsis shock status: without septic shock Qualified Code(s): A41.9 - Sepsis, unspecified organism; R65.20 - Severe sepsis without septic shock; N17.9 - Acute kidney failure, unspecified (2) Pyelonephritis Impression: Continue ceftriaxone. (3) Acute kidney injury Impression: Creatinine has increased from 6.6 to 6.8. Continue to monitor BUNs/creatinine. Patient continues to make urine. Continue normal saline at 150 mL/hour.Give 500 mL bolus. Laboratory sent to calculate FENA. UA ordered. (4) Atrial fibrillation with RVR Impression: Continue metoprolol 25 mg daily. (5) Encephalopathy Impression: Stabilized. (6) Transaminitis Impression: Transaminitis appears to be improving as demonstrated by a decrease in the AST and ALT. (7) Disposition Impression: Patient continues to require meet requirements for hospitalizations given the fact that he has acute kidney injury with a current creatinine of 6.8. He continues to make urine and is not a candidate for dialysis at this time. - Current Meds Current Meds: Current Medications Generic Name Dose Route Start Last Admin Trade Name Freq PRN Reason Stop Dose Admin Acetaminophen 650 mg 06/29/23 16:45 07/02/23 20:17 Acetaminophen 325 Mg Tablet PO 650 mg Q4HR PRN Administration Pain 1 to 4, or Fever Atorvastatin Calcium 80 mg 06/29/23 21:00 07/04/23 20:01 Atorvastatin 40 Mg Tablet PO 80 mg QPM SLOAN Administration Docusate Sodium 250 - 500 mg 07/01/23 16:00 07/04/23 07:54 Docusate Sodium 250 Mg Capsule PO Not Given DAILY SLOAN Heparin Sodium (Porcine) 5,000 unit 06/29/23 21:00 07/04/23 20:01 Heparin 5,000 Unit/Ml Vial SUBQ 5,000 unit BID SLOAN Administration Ceftriaxone Sodium 1 gm/ 100 mls @ 200 mls/hr 06/30/23 09:00 07/04/23 09:25 Sodium Chloride IV Infused DAILY SLOAN Infusion Sodium Chloride 1,000 mls @ 150 mls/hr 07/04/23 17:12 07/04/23 20:00 Normal Saline 0.9% IV 150 mls/hr .Q6H40M SLOAN Administration Lactobacillus Rhamnosus 1 cap 06/30/23 09:00 07/04/23 07:53 Lactobacillus Rhamnosus Gg Capsule PO 1 cap DAILY SLOAN Administration Metoprolol Succinate 25 mg 06/30/23 12:00 07/04/23 07:53 Metoprolol Succinate 25 Mg Tablet PO 25 mg DAILY SLOAN Administration Metoprolol Tartrate 5 mg 06/29/23 18:21 07/04/23 00:08 Metoprolol 5 Mg/5 Ml Vial IVP 5 mg Q6H PRN Administration Tachycardia Polyethylene Glycol 17 gm 07/01/23 09:00 07/04/23 07:55 Polyethylene Glycol 3350 17 Gm Packet PO Not Given DAILY [facility] Senna 8.6 - 17.2 mg 07/01/23 16:00 07/04/23 07:55 Senna 8.6 Mg Tablet PO Not Given DAILY [facility] Sodium Chloride 10 ml 06/29/23 17:00 07/04/23 17:34 Sodium Chloride Flush 0.9% 10 Ml Syringe IVP Not Given 0100,0900,1700 [facility] - Lab Result Fish Bone Diagrams: 07/04/23 13:30 07/04/23 05:25 - Additional Planning My Orders: My Active Orders 07/04/23 C DIFF PCR Routine 07/04/23 17:12 Sodium Chloride 0.9% [Normal Saline 0.9%] 1,000 ml IV 150 mls/hr 07/05/23 05:00 BMP - BASIC METABOLIC PANEL [CHEM] Routine CBC - COMP BLD CT W/AUTO DIFF [HEME] Routine CREATININE,URINE [UC] Routine MAGNESIUM [CHEM] Routine PHOSPHORUS [CHEM] Routine SODIUM, URINE [UC] Routine UA w/ MICROSCOPIC [URIN] Routine Subjective - Subjective Patient Reports: Other (Alert. Denies shortness of breath, chest pain and abdominal pain. No other complaints at this time.Patient reports increase in frequency of stool. He denies abdominal pain and fever.) Objective Vital Signs: Vital Signs - 24 hr 07/03/23 07/04/23 07/04/23 23:37 00:08 00:27 Temperature 36.7 C Heart Rate [ 113 H Brachial] Heart Rate [ Monitoring electrodes] Respiratory 24 Rate Blood Pressure 135/98 H 144/95 H Blood Pressure 146/97 H [Right Brachial artery] O2 Saturation 96 07/04/23 07/04/23 07/04/23 04:41 08:25 12:38 Temperature 36.8 C 36.6 C 36.9 C Heart Rate [ 79 101 H 94 Brachial] Heart Rate [ Monitoring electrodes] Respiratory 24 20 20 Rate Blood Pressure Blood Pressure 124/77 142/92 H 142/98 H [Right Brachial artery] O2 Saturation 94 95 97 07/04/23 07/04/23 16:10 21:00 Temperature 37 C 37.1 C Heart Rate [ Brachial] Heart Rate [ 98 93 Monitoring electrodes] Respiratory 20 20 Rate Blood Pressure Blood Pressure 140/97 H 134/91 H [Right Brachial artery] O2 Saturation 92 96 Oxygen O2 Source Room air I&O (Last 24 Hrs): Intake and Output Totals x24h 07/02/23 07/03/23 07/04/23 23:59 23:59 23:59 Intake Total 4239.5 4890.5 3113.3 Output Total 1650 1780 100 Balance 2589.5 3110.5 3013.3 General: Alert, Oriented x3 Neck: No JVD, No thyromegaly Neuro: Alert, Non Focal Cardiovascular: Other (Positive S1-S2 no extra heart sounds.) Respiratory: Other (Good air exchange in all lung panda no wheezing no crackles.) Abdomen: Other (Soft nondistended positive bowel sounds.) Extremities: No cyanosis, No edema Skin: No rashes - Results Results: Laboratory Results WBC 11.6 x10^3/uL (4.8-10.8) H 07/04/23 13:30 RBC 4.26 10^6/uL (4.70-6.10) L 07/04/23 13:30 Hgb 13.2 g/dL (14.0-18.0) L 07/04/23 13:30 Hct 41.5 % (42.0-52.0) L 07/04/23 13:30 MCV 97.4 fL (80.0-94.0) H 07/04/23 13:30 MCH 31.0 pg (27.0-31.0) 07/04/23 13:30 MCHC 31.8 g/dL (32.0-36.0) L 07/04/23 13:30 RDW 13.2 % (12.0-15.0) 07/04/23 13:30 Plt Count 304 10^3/uL (130-450) 07/04/23 13:30 MPV 9.4 fL (7.4-11.4) 07/04/23 13:30 Neut # (Auto) 9.0 10^3/uL (1.5-6.6) H 07/04/23 13:30 Lymph # (Auto) 1.4 10^3/uL (1.5-3.5) L 07/04/23 13:30 Miller # (Auto) 0.9 10^3/uL (0.0-1.0) 07/04/23 13:30 Eos # (Auto) 0.2 10^3/uL (0.0-0.7) 07/04/23 13:30 Baso # (Auto) 0.1 10^3/uL (0.0-0.1) 07/04/23 13:30 Absolute Nucleated RBC 0.00 x10^3/uL 07/04/23 13:30 Total Counted 100 06/29/23 14:52 Band Neuts % (Manual) 0 % (0-10) 06/29/23 14:52 Abnorm Lymph % (Manual) 0 % 06/29/23 14:52 Nucleated RBC % 0.0 /100WBC 07/04/23 13:30 Neutrophils # (Manual) 26.0 10^3/uL (1.5-6.6) H 06/29/23 14:52 Lymphocytes # (Manual) 0.6 10^3/uL (1.5-3.5) L 06/29/23 14:52 Monocytes # (Manual) 3.0 10^3/uL (0.0-1.0) H 06/29/23 14:52 Eosinophils # (Manual) 0.0 10^3/uL (0-0.7) 06/29/23 14:52 Basophils # (Manual) 0.0 10^3/uL (0-0.1) 06/29/23 14:52 Differential Comment MANUAL DIFFERENTIAL 06/29/23 14:52 Manual Slide Review Indicated 06/30/23 07:08 WBC Morphology NORMAL APPEARANCE (NORMAL) 06/29/23 14:52 Platelet Estimate NORMAL (130-450,000) (NORMAL) 06/29/23 14:52 Platelet Morphology NORMAL APPEARANCE (NORMAL) 06/29/23 14:52 RBC Morph Micro Appear 2+ ANISOCYTOSIS (NORMAL) 06/30/23 07:08 Sodium 136 mmol/L (135-145) 07/04/23 05:25 Potassium 4.4 mmol/L (3.5-4.5) 07/04/23 05:25 Chloride 110 mmol/L (101-111) 07/04/23 05:25 Carbon Dioxide 15 mmol/L (21-32) L 07/04/23 05:25 Anion Gap 11.0 (6-13) 07/04/23 05:25 BUN 58 mg/dL (6-20) H 07/04/23 05:25 Creatinine 6.8 mg/dL (0.6-1.3) H 07/04/23 05:25 Estimated GFR (MDRD) 8 (>89) L 07/04/23 05:25 Glucose 82 mg/dL (74-104) 07/04/23 05:25 Lactic Acid 1.6 mmol/L (0.5-2.2) 06/29/23 14:52 Calcium 8.3 mg/dL (8.5-10.3) L 07/04/23 05:25 Phosphorus 4.8 mg/dL (2.5-5.0) 07/03/23 04:56 Magnesium 1.9 mg/dL (1.7-2.3) 07/03/23 04:56 Total Bilirubin 0.5 mg/dL (0.2-1.0) 07/04/23 05:25 AST 41 IU/L (10-42) 07/04/23 05:25 ALT 58 IU/L (10-60) 07/04/23 05:25 Alkaline Phosphatase 83 IU/L (42-121) 07/04/23 05:25 Total Creatine Kinase 125 IU/L (30-223) 06/29/23 14:41 Total Protein 5.3 g/dL (6.4-8.9) L 07/04/23 05:25 Albumin 3.1 g/dL (3.2-5.5) L 07/04/23 05:25 Globulin 2.2 g/dL (2.1-4.2) 07/04/23 05:25 Albumin/Globulin Ratio 1.4 (1.0-2.2) 07/04/23 05:25 Urine Color RED/BLOODY 06/29/23 17:10 Urine Clarity CLOUDY (CLEAR) 06/29/23 17:10 Urine pH 5.5 PH (5.0-7.5) 06/29/23 17:10 Ur Specific Patten 1.025 (1.002-1.030) 06/29/23 17:10 Urine Protein >=300 mg/dL (NEGATIVE) H 06/29/23 17:10 Urine Glucose (UA) NEGATIVE mg/dL (NEGATIVE) 06/29/23 17:10 Urine Ketones TRACE mg/dL (NEGATIVE) 06/29/23 17:10 Urine Occult Blood LARGE (NEGATIVE) H 06/29/23 17:10 Urine Nitrite POSITIVE (NEGATIVE) H 06/29/23 17:10 Urine Bilirubin SMALL (NEGATIVE) H 06/29/23 17:10 Urine Urobilinogen 1 (NORMAL) E.U./dL (NORMAL) 06/29/23 17:10 Ur Leukocyte Esterase TRACE (NEGATIVE) H 06/29/23 17:10 Urine RBC TNTC /HPF (0-5) H 06/29/23 17:10 Urine WBC >25 /HPF (0-3) H 06/29/23 17:10 Ur Squamous Epith Cells FEW Squamous (<= Few) 06/29/23 17:10 Amorphous Sediment Moderate /LPF 06/29/23 17:10 Urine Bacteria Moderate /HPF (None Seen) H 06/29/23 17:10 Ur Microscopic Review INDICATED 06/29/23 17:10 Urine Culture Comments INDICATED 06/29/23 17:10 Sepsis Event Note (H) - Evaluation Current Stage of Sepsis: Sepsis Possible source of Sepsis: positive: Genitourinary - Sepsis Criteria Sepsis Criteria: Recorded Heart Rate greater than 90 bpm, WBC count greater than 12,000 or less than 4000, BANK REPRESENTATIVE: altered consciousness (unrelated to primary neuro pathology)
[2023-07-05] MEDS: HYDROcod/ACETAM 5/325 MG TABLET PO PRN (02:11)
[2023-07-05 05:40] LABS: BILIRUBIN,URINE NEGATIVE (NEGATIVE); GLUCOSE, URINE (UA) NEGATIVE (NEGATIVE); KETONES,URINE (UA) NEGATIVE (NEGATIVE); LEUKOCYTE ESTERASE, URINE NEGATIVE (NEGATIVE); NITRITE,URINE NEGATIVE (NEGATIVE); OCCULT BLOOD,URINE LARGE (NEGATIVE); PROTEIN,URINE 30 mg/dL (NEGATIVE); UROBILINOGEN,URINE 0.2 (NORMAL) E.U./dL (NORMAL)
[2023-07-05 05:41] LABS: CLARITY,URINE CLEAR (CLEAR); SQUAMOUS EPITHELIAL CELL,UR RARE Squamous (<= Few); WBC,URINE 0-3 /HPF (0-3)
[2023-07-05 05:42] LABS: BACTERIA,URINE None Seen /HPF (None Seen)
[2023-07-05 05:48] LABS: BASOPHILS # (AUTO) 0.1 10^3/uL (0.0-0.1); BASOPHILS % (AUTO) 0.4 %; EOSINOPHILS % (AUTO) 0.2 %; HCT - HEMATOCRIT 36.8 % (42.0-52.0); HGB - HEMOGLOBIN 11.7 g/dL (14.0-18.0); LYMPHOCYTES # (AUTO) 0.8 10^3/uL (1.5-3.5); LYMPHOCYTES % (AUTO) 6.2 %; MEAN CORPUSCULAR HEMOGLOBIN 31.2 pg (27.0-31.0); MEAN CORPUSCULAR HGB CONC 31.8 g/dL (32.0-36.0); MEAN CORPUSCULAR VOLUME 98.1 fL (80.0-94.0); MEAN PLATELET VOLUME 9.8 fL (7.4-11.4); MONOCYTES # (AUTO) 0.6 10^3/uL (0.0-1.0); MONOCYTES % (AUTO) 4.8 %; NEUTROPHILS # (AUTO) 11.2 10^3/uL (1.5-6.6); PLT - PLATELET COUNT 261 10^3/uL (130-450); RED BLOOD COUNT 3.75 10^6/uL (4.70-6.10); RED CELL DISTRIBUTION WIDTH 13.3 % (12.0-15.0); WHITE BLOOD COUNT 12.7 x10^3/uL (4.8-10.8)
[2023-07-05 05:57] LABS: CREATININE,URINE 51.2 mg/dL; SODIUM, URINE 119.1 mmol/L
[2023-07-05 06:06] LABS: CALCIUM 8.2 mg/dL (8.5-10.3); CREATININE 6.4 mg/dL (0.6-1.3); MAGNESIUM 1.8 mg/dL (1.7-2.3); PHOSPHORUS 5.1 mg/dL (2.5-5.0); POTASSIUM 4.4 mmol/L (3.5-4.5)
[2023-07-05 08:16] LABS: INR 1.2 (0.8-1.2); PT - PROTHROMBIN TIME 12.7 secs (9.9-12.6)
[2023-07-05 09:15] LABS: HGB - HEMOGLOBIN 12.2 g/dL (14.0-18.0); MEAN CORPUSCULAR HEMOGLOBIN 30.7 pg (27.0-31.0); MEAN CORPUSCULAR HGB CONC 31.3 g/dL (32.0-36.0); MEAN CORPUSCULAR VOLUME 98.2 fL (80.0-94.0); MEAN PLATELET VOLUME 9.1 fL (7.4-11.4); RED BLOOD COUNT 3.97 10^6/uL (4.70-6.10); RED CELL DISTRIBUTION WIDTH 13.3 % (12.0-15.0); WHITE BLOOD COUNT 13.3 x10^3/uL (4.8-10.8)
[2023-07-05] MEDS: HEPARIN 25000UNITS/500ML (D5W) 25,000 UNIT/500 ML BAG IV SCH (09:29)
--- NOTE | 2023-07-05 11:50 | Discharge Plan ---
"Discharge Plan for SNF / [facility] - Discharge Plan And Transition Orders Problem Reviewed?: Yes Disposition: 02 Transfer Acute Care Hosp Condition: Critical Allergies and Adverse Reactions: Allergies Allergy/AdvReac Type Severity Reaction Status Date / Time shellfish derived Allergy Hives Verified 06/29/23 14:33 Health Concerns: Fredy Whitehead is a 73-year-old man with a past medical history significant for atrial fibrillation, mitral valve repair and recent hospitalization for acute pyelonephritis, sepsis. He was admitted on June 24, 2023 and discharged on June 26, 2023. During this hospitalization patient refused anticoagulation. At the time of his discharge his BUN/creatinine was 21/1.4. He was readmitted on June 29, 2023 with a chief complaint of confusion. Patient was diagnosed with sepsis and pyelonephritis and treatment was initiated with ceftriaxone. At the time of his admission his creatinine had increased to 4.6. Urine cultures and blood cultures were negative. Patient's sepsis and underlying infection improved and his initial white blood cell count on June 28 was 29.6 K and today is 12.7 K. His BUNs/creatinine has continued to rise since admission and plateaued at a BUN/creatinine of 58/6.8. Today BUN is 56/6.4. He continues to make urine. Echocardiogram performed on June 25, 2023 revealed an underlying rhythm of atrial fibrillation with an ejection fraction of 35-40%. The right ventricular systolic function is normal. The patient has a mitral clip in place with trace mitral regurgitation. The RVSP at rest is 37 mmHg. This morning, I was informed the patient had pain and pallor and change in temperature in his left lower extremity. This was consistent firmed on exam and treatment was initiated with a heparin drip. 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 Please note that patient ate a small amount of food at noon time.He has been n.p.o. since noon time. Plan of Treatment: Mr. Whitehead will be transferred to a higher level of care for management of his acute lower limb mixed ischemia Care Goals: Goal is to manage his acute left lower limb ischemia and his other medical problems so that he can return to baseline. Assessment: (1) Sepsis Qualifiers: Sepsis type: sepsis due to unspecified organism Sepsis acute organ dysfunction status: with acute organ dysfunction Severe sepsis acute organ dysfunction type: acute renal failure Acute renal failure type: unspecified Severe sepsis shock status: without septic shock Qualified Code(s): A41.9 - Sepsis, unspecified organism; R65.20 - Severe sepsis without septic shock; N17.9 - Acute kidney failure, unspecified Assessment/Plan: Sepsis parameters are improving. Continue ceftriaxone for 7 days. Patient should receive 2 more days of treatment. Qualifiers: Sepsis type: sepsis due to unspecified organism Sepsis acute organ dysfunction status: with acute organ dysfunction Severe sepsis acute organ dysfunction type: acute renal failure Acute renal failure type: unspecified Severe sepsis shock status: without septic shock Qualified Code(s): A41.9 - Sepsis, unspecified organism; R65.20 - Severe sepsis without septic shock; N17.9 - Acute kidney failure, unspecified (2) Pyelonephritis Impression: Continue ceftriaxone for total of 7 days of treatment. (3) Acute kidney injury Impression: Creatinine has increased from 6.8 to 6.4 Continue to monitor BUNs/creatinine. Patient continues to make urine. Continue normal saline at 150 mL/hour. He appears to be responding to increase in fluid rate. (4) Atrial fibrillation with RVR Impression: Continue metoprolol 25 mg daily. Patient refused anticoagulation on prior admission on June 24, 2023. (5) Encephalopathy Impression: Resolved. (6) Transaminitis Impression: Mild transaminitis appears to be improving as demonstrated by a decrease in the AST and ALT. (7) Left Lower Limb Ischemia Impression: Patient complained of pain and had pallor of the left lower extremity that began after midnight. A heparin drip has been initiated and ultrasound demonstrated an occlusion of the left common femoral artery, proximal superficial femoral artery and distal superficial femoral artery. (8) Disposition Patient to transfer to a higher level of care for treatment of his acute left lower limb ischemia. - SNF / NURSING HOME Transition Orders Admit to (Facility): [facility] Under the care of (Name): Dr. Jos Florez Discharge Diagnosis: (1) Sepsis (2) Pyelonephritis (3) Acute kidney injury (4) Atrial fibrillation with RVR (5) Encephalopathy (6) Transaminitis (7) Left Lower Limb Ischemia (8) Disposition Medicare Certification Statement: I certify that Post Hospital long term care is medically necessary on a continuing basis for any of the conditions for which she/he is receiving care during hospitalization. Notify PCP of admission and forward orders to primary provider for signature. Other Notification Orders: Call PCP immediately if patient develops dyspnea, chest pain/tightness or edema. House Bowel Program: Yes Additional Bowel Program Orders: If no BM after 2 days, nurse may give M.O.M. 30ml PO PRN and/or ducolax Supp 1 [place] and/or CHRISS 250mg P.O., and/or senna 1-2 tabs PO. On day 3 nurse may give repeat above order until residents constipation is resolved. Annual Influenza Vaccine (between Nov 01 and May 31): Yes Two-step PPD per [facility] [id number] or approved exception documents: Yes Medication Orders: PLEASE REFER TO THE DISCHARGE MEDICATION LIST. - Diet Type: NPO - Therapies | Activity Activity: Activity as Tolerated Follow Up: Rebecca Small"
--- NOTE | 2023-07-05 12:10 | Ultrasound Report ---
PROCEDURE: Arterial Duplex Lwr Ext BL INDICATIONS: Pain, palor, temperature change L lower extremity TECHNIQUE: Color and pulse Doppler interrogation was performed of both lower extremity arterial systems, with im age documentation. COMPARISON: Correlation is made with prior abdomen pelvis CT, 10/24/2023 FINDINGS: Right lower extremity: Common femoral artery: 67 cm/sec, with triphasic flow. Deep femoral artery: 54 cm/sec, with biphasic flow. Proximal superficial femoral artery: 52 cm/sec, with triphasic flow. Mid superficial femoral artery: 66 cm/sec, with triphasic flow. Distal superficial femoral artery: 55 cm/sec, with triphasic flow. Popliteal artery: 43 cm/sec, with triphasic flow. Posterior tibial artery: 111 cm/sec, with triphasic flow. Anterior tibial artery/dorsalis pedis: 59 cm/sec, with triphasic flow. Gunderson-scale imaging description: Calcified plaque can be seen. Left lower extremity: Common femoral artery: Areas of occlusion can be seen within the left common femoral artery. There i s also trickle flow seen with 9 cm/sec, with monophasic flow. Deep femoral artery: 47 cm/sec, with monophasic flow. Proximal superficial femoral artery: Occluded Mid superficial femoral artery: 15 cm/sec, with monophasic flow. Distal superficial femoral artery: Occluded Popliteal artery: 9 cm/sec, with monophasic flow. Posterior tibial artery: 8 cm/sec, with monophasic flow. Anterior tibial artery/dorsalis pedis: 5 cm/sec, with monophasic flow. Gunderson-scale imaging description: No significant atherosclerotic plaque. IMPRESSION: Areas of occlusion can be seen involving the left lower extremity, with occlusion seen w ithin the common femoral artery, the proximal superficial femoral artery, and the distal superficial femoral artery. Only trickle flow can be seen within the distal left lower extremity arteries. No significant abnormality can be seen on the right. Note: Concordant preliminary findings given by the daub color mixer upon the completion of the examination to Dr. Diaz at 11:40 AM on 07/05/2023. Reviewed by: Colton Parra MD on 07/05/2023 11:09 AM TONY Approved by: Colton Parra MD on 07/05/2023 11:09 AM TONY Station ID: [id number]
--- NOTE | 2023-07-05 14:12 | DISCHARGE SUMMARY ---
Discharge Summary Admit Date: 06/29/23 Discharge Date: 07/05/23 Discharging Provider: Fredy Magallon Primary Care Provider: Rebecca Small Condition at Discharge: Critical Discharge Disposition: 02 Transfer Acute Care Hosp - DIAGNOSES Admission Diagnoses: (1) Sepsis (2) Pyelonephritis (3) Acute kidney injury (4) Atrial fibrillation with RVR (5) Encephalopathy Discharge Diagnoses with Status of Each Condition: (1) Sepsis (2) Pyelonephritis (3) Acute kidney injury (4) Atrial fibrillation with RVR (5) Encephalopathy (6) Transaminitis (7) Left Lower Limb Ischemia - HPI History of Present Illness: Fredy Whitehead is a 73-year-old man with a past medical history significant for atrial fibrillation, mitral valve repair and recent hospitalization for acute pyelonephritis, sepsis. He was admitted on June 24, 2023 and discharged on June 26, 2023. During this hospitalization patient refused anticoagulation. At the time of his discharge his BUN/creatinine was 21/1.4. He was readmitted on June 29, 2023 with a chief complaint of confusion. Patient was diagnosed with sepsis and pyelonephritis and treatment was initiated with ceftriaxone. At the time of his admission his creatinine had increased to 4.6. Urine cultures and blood cultures were negative. Patient's sepsis and underlying infection improved and his initial white blood cell count on June 28 was 29.6 K and today is 12.7 K. His BUNs/creatinine has continued to rise since admission and plateaued at a BUN/creatinine of 58/6.8. Today BUN is 56/6.4. He continues to make urine. Echocardiogram performed on June 25, 2023 revealed an underlying rhythm of atrial fibrillation with an ejection fraction of 35-40%. The right ventricular systolic function is normal. The patient has a mitral clip in place with trace mitral regurgitation. The RVSP at rest is 37 mmHg. This morning, I was informed the patient had pain and pallor and change in temperature in his left lower extremity. This was confirmed on exam and treatment was initiated with a heparin drip. 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 Please note that patient ate a small amount of food at noon time.He has been n.p.o. since noon time. - HOSPITAL COURSE Hospital Course: See history of present illness. - ALLERGIES Allergies/Adverse Reactions: Allergies Allergy/AdvReac Type Severity Reaction Status Date / Time shellfish derived Allergy Hives Verified 06/29/23 14:33 - MEDICATIONS Home Medications: Ambulatory Orders Medication Instructions Recorded Confirmed Rosuvastatin Calcium [Crestor] 40 mg PO HS 06/25/23 06/29/23 HYDROcod/ACETAM 5/325 [[place] 5/325] 1 tab PO Q4HR PRN tab 07/05/23 Heparin [id number]/500Ml (D5w) 25,000 unit IV .[id number] each 07/05/23 [Heparin Sodium/Dextrose] Lactobacillus Rhamnosus GG 1 cap PO DAILY cap 07/05/23 [Culturelle] Metoprolol Succinate [Toprol Xl] 25 mg PO DAILY tab 07/05/23 cefTRIAXone [Rocephin 1 gram] 1 gm IV DAILY ml 07/05/23 - PHYSICAL EXAM AT DISCHARGE General Appearance: positive: No acute distress, Moderate distress Eyes Bilateral: positive: Conjunctivae nml Neck: positive: Nml inspection, Trachea midline Respiratory: positive: No respiratory distress, Other (Good air exchange in all lung panda no wheezing no crackles.) Cardiovascular: positive: Other (Positive S1-S2 no extra heart sounds.) Abdomen: positive: Other (Soft nontender nondistended positive bowel sounds.) Extremities: positive: Other (Positive pallor and cyanosis of toes of left lower extremity. Absent pulses absent Doppler.Patient currently reports no pain and tactile function is intact.) - LABS Result Diagrams: 07/05/23 09:11 07/05/23 05:20 - SEPSIS Current Stage of Sepsis: Sepsis Possible source of Sepsis: Genitourinary Sepsis Criteria: Recorded Heart Rate greater than 90 bpm, WBC count greater than 12,000 or less than 4000, EARLY CHILDHOOD SPECIAL EDUCATOR: altered consciousness (unrelated to primary neuro pathology) - FOLLOW UP Follow Up: Rebecca BARROW - TIME SPENT Time Spent in Discharge (Minutes): 45 (45 minutes was spent coordinating transfer to a higher level of care.)
[2023-07-05 15:41] VITALS: O2SAT 98
[2023-07-05 17:13] VITALS: BP 143/94
== END 2023-07-05 17:03 | disposition short-term general hospital (02) | DRG 872 ==
LOC: EDUNIT# → ED 14:22 → MS2 16:45
PROVIDERS: ADMIT Internal Medicine; ATTEND Internal Medicine
DX: A41.9 Sepsis, unspecified organism (principal); N12 Tubulo-interstitial nephritis, not specified as acute or chronic; N17.9 Acute kidney failure, unspecified; G93.40 Encephalopathy, unspecified; I48.91 Unspecified atrial fibrillation; R00.0 Tachycardia, unspecified; F17.200 Nicotine dependence, unspecified, uncomplicated; R74.01 Elevation of levels of liver transaminase levels; I99.8 Other disorder of circulatory system; R65.20 Severe sepsis without septic shock; Z79.899 Other long term (current) drug therapy; Z91.013 Allergy to seafood
CPT/HCPCS: 36415; 51798; 80048; 80053; 81001; 82272; 82550; 82570; 83605; 83735; 84100; 84300; 85025; 85027; 85610; 85730; 87040; 87086; 87493; 93925; 96374; 99285; A9270; 81003

== ENCOUNTER 2023-07-18 12:04 | Outpatient (CLI) | payer MEDICARE ==
[2023-07-18 15:12] LABS: BASOPHILS # (AUTO) 0.1 10^3/uL (0.0-0.1); BASOPHILS % (AUTO) 1.2 %; EOSINOPHILS # (AUTO) 0.3 10^3/uL (0.0-0.7); EOSINOPHILS % (AUTO) 4.3 %; HCT - HEMATOCRIT 37.8 % (42.0-52.0); HGB - HEMOGLOBIN 11.8 g/dL (14.0-18.0); LYMPHOCYTES # (AUTO) 1.8 10^3/uL (1.5-3.5); LYMPHOCYTES % (AUTO) 22.9 %; MEAN CORPUSCULAR HEMOGLOBIN 31.1 pg (27.0-31.0); MEAN CORPUSCULAR HGB CONC 31.2 g/dL (32.0-36.0); MEAN CORPUSCULAR VOLUME 99.5 fL (80.0-94.0); MEAN PLATELET VOLUME 11.7 fL (7.4-11.4); MONOCYTES # (AUTO) 0.8 10^3/uL (0.0-1.0); MONOCYTES % (AUTO) 10.5 %; NEUTROPHILS # (AUTO) 4.7 10^3/uL (1.5-6.6); NEUTROPHILS % (AUTO) 60.7 %; PLT - PLATELET COUNT 255 10^3/uL (130-450); RED CELL DISTRIBUTION WIDTH 13.9 % (12.0-15.0); WHITE BLOOD COUNT 7.7 x10^3/uL (4.8-10.8)
[2023-07-18 15:25] LABS: ALBUMIN 4.2 g/dL (3.2-5.5); ALBUMIN/GLOBULIN RATIO 1.8 (1.0-2.2); BILIRUBIN,TOTAL 0.5 mg/dL (0.2-1.0); CALCIUM 9.2 mg/dL (8.5-10.3); CREATININE 5.1 mg/dL (0.6-1.3); POTASSIUM 4.8 mmol/L (3.5-4.5); TOTAL PROTEIN 6.5 g/dL (6.4-8.9)
== END 2023-07-18 12:05 | disposition home or self-care (01) ==
LOC: LAB.S 12:04
PROVIDERS: ATTEND Physician Assistant Medical
DX: E87.6 Hypokalemia (principal); I73.9 Peripheral vascular disease, unspecified
CPT/HCPCS: 36415; 80053; 85025

== ENCOUNTER 2023-08-02 10:13 | Outpatient (CLI) | payer MEDICARE | END 2023-08-02 23:59 | disposition EMS.NT | LOC: EMS 10:13 | DX: T83.038A Leakage of other urinary catheter, initial encounter (principal) ==

== ENCOUNTER 2023-08-02 12:00 | Emergency (ER) | payer MEDICARE ==
[2023-08-02 12:22] VITALS: BP 124/82; O2SAT 99
--- NOTE | 2023-08-02 12:32 | ED Physician Documentation ---
History of Present Illness - Stated complaint Stated Complaint: CATH BAG REPLACEMENT - Chief complaint Chief Complaint: General - Additonal information Additional information: 73-year-old male has a urinary catheter which was fairly recently placed down at [place] and he has a follow-up appointment in a few weeks to have a voiding trial. He is here today because he noticed that there was leakage from the bag this morning. He has no other concerns today. PD PAST MEDICAL HISTORY - Past Medical History Past Medical History: Yes Cardiovascular: Atrial flutter, Murmur Respiratory: None Neuro: None Endocrine/Autoimmune: None GI: GERD : Indwelling catheter Psych: None Musculoskeletal: Chronic back pain Derm: None - Past Surgical History Past Surgical History: No Cardiovascular: Other - Present Medications Home Medications: Ambulatory Orders Medication Instructions Recorded Confirmed Rosuvastatin Calcium [Crestor] 40 mg PO HS 06/25/23 06/29/23 HYDROcod/ACETAM 5/325 [[place] 5/325] 1 tab PO Q4HR PRN tab 07/05/23 Heparin [id number]/500Ml (D5w) 25,000 unit IV .[id number] each 07/05/23 [Heparin Sodium/Dextrose] Lactobacillus Rhamnosus GG 1 cap PO DAILY cap 07/05/23 [Culturelle] Metoprolol Succinate [Toprol Xl] 25 mg PO DAILY tab 07/05/23 cefTRIAXone [Rocephin 1 gram] 1 gm IV DAILY ml 07/05/23 - Allergies Allergies/Adverse Reactions: Allergies Allergy/AdvReac Type Severity Reaction Status Date / Time shellfish derived Allergy Hives Verified 08/02/23 12:14 - Social History Does the pt smoke?: Yes Smoking Status: Current every day smoker Does the pt drink ETOH?: Yes Does the pt have substance abuse?: No - POLST Patient has POLST: Yes POLST Status: Full Code (He wants to get CPR but if that doesn't work then no further intervention.) PD ED PE NORMAL - Vitals Vital signs reviewed: Yes - General General: Alert and oriented X 3, No acute distress - Abdomen Abdomen: Normal bowel sounds, Soft - Male Male : Other (Urinary catheter in place, bag leaking at the spout) Results - Vitals Vitals: Vital Signs - 24 hr 08/02/23 12:14 Temperature 36.8 C Heart Rate 88 Respiratory 16 Rate Blood Pressure 124/82 H O2 Saturation 99 Oxygen O2 Source Room air PD Medical Decision Making - ED course Complexity details: d/w patient ED course: 73-year-old male presented with the indwelling urinary catheter with leakage around the bag. He has no other concerns today, no abdominal pain, no flank pain, no fever. We changed out the urinary catheter bag but unfortunately the once we stop care are quite small and he is inquiring about a larger bag. I have encouraged him to follow-up with his PCP or urologist to see about getting a larger bag for now he will need to into this more frequently. He was given information about establishing urology care locally as currently he has to go all the way to [place]. Departure - Departure Disposition: Home, Self Care Clinical Impression: Urinary catheter dysfunction Qualifiers: Encounter type: initial encounter Qualified Code(s): T83.018A - Breakdown (mechanical) of other urinary catheter, initial encounter Condition: Good Follow-Up: Wm Duong MD [Provider Admit Priv/Credential] - Comments: We changed out your catheter bag. Unfortunately the bags we have a pretty small, and you may find that you need to empty the stone more frequently. You can talk with your primary doctor or urologist about getting supplied with a larger bag but this is always stuck here at the hospital. You were seen a urologist down at [place], but you potentially could transfer your care up here locally to Dr. Duong who is a urologist Here locally. I have listed his information on your paperwork. Forms: PCP List
== END 2023-08-02 12:41 | disposition home or self-care (01) ==
LOC: ED 12:00
DX: T83.031A Leakage of indwelling urethral catheter, initial encounter (principal); I48.92 Unspecified atrial flutter; F17.200 Nicotine dependence, unspecified, uncomplicated
CPT/HCPCS: 99281; 99283

== ENCOUNTER 2023-09-03 09:06 | Outpatient (CLI) | payer MEDICARE | END 2023-09-03 09:07 | disposition home or self-care (01) | LOC: LAB 09:06 | PROVIDERS: ATTEND Family Medicine | DX: I48.0 Paroxysmal atrial fibrillation (principal) | CPT/HCPCS: 36416; 85610 ==

== ENCOUNTER 2023-09-05 15:00 | Outpatient (CLI) | payer MEDICARE | END 2023-09-05 15:01 | disposition home or self-care (01) | LOC: LAB 15:00 | PROVIDERS: ATTEND Family Medicine | DX: I48.0 Paroxysmal atrial fibrillation (principal) | CPT/HCPCS: 36416; 85610 ==

== ENCOUNTER 2023-09-10 14:15 | Outpatient (CLI) | payer MEDICARE ==
[2023-09-10 14:35] LABS: BASOPHILS # (AUTO) 0.1 10^3/uL (0.0-0.1); BASOPHILS % (AUTO) 0.4 %; EOSINOPHILS # (AUTO) 0.1 10^3/uL (0.0-0.7); EOSINOPHILS % (AUTO) 0.7 %; HCT - HEMATOCRIT 33.1 % (42.0-52.0); HGB - HEMOGLOBIN 10.6 g/dL (14.0-18.0); LYMPHOCYTES # (AUTO) 1.5 10^3/uL (1.5-3.5); LYMPHOCYTES % (AUTO) 12.5 %; MEAN CORPUSCULAR VOLUME 96.8 fL (80.0-94.0); MEAN PLATELET VOLUME 9.8 fL (7.4-11.4); MONOCYTES # (AUTO) 1.3 10^3/uL (0.0-1.0); MONOCYTES % (AUTO) 10.9 %; PLT - PLATELET COUNT 217 10^3/uL (130-450); RED BLOOD COUNT 3.42 10^6/uL (4.70-6.10); RED CELL DISTRIBUTION WIDTH 14.1 % (12.0-15.0)
[2023-09-10 14:54] LABS: ALBUMIN 4.5 g/dL (3.2-5.5); ALBUMIN/GLOBULIN RATIO 1.6 (1.0-2.2); ALKALINE PHOSPHATASE 74 IU/L (42-121); ALT ALANINE AMINOTRANSFERASE 28 IU/L (10-60); AST ASPARTATE AMINOTRANSFERASE 19 IU/L (10-42); BILIRUBIN,TOTAL 0.7 mg/dL (0.2-1.0); BUN - BLOOD UREA NITROGEN 63 mg/dL (6-20); CALCIUM 9.2 mg/dL (8.5-10.3); CARBON DIOXIDE - CO2 25 mmol/L (21-32); CHLORIDE 98 mmol/L (101-111); CHOL/HDL RATIO 2.5 (<5.0); CHOLESTEROL 100 mg/dL; CREATININE 4.1 mg/dL (0.6-1.3); GFR - MDRD 14 (>89); GLUCOSE 115 mg/dL (74-104); HDL CHOLESTEROL 40 mg/dL; LDL CHOLESTEROL,CALCULATED 25 mg/dL; LDL/HDL RATIO 0.6 (<3.6); POTASSIUM 4.5 mmol/L (3.5-4.5); SODIUM 132 mmol/L (135-145); TOTAL PROTEIN 7.4 g/dL (6.4-8.9); TRIGLYCERIDES 175 mg/dL; VLDL CHOLESTEROL 35 mg/dL
[2023-09-10 22:51] LABS: ESTIMATED AVERAGE GLUCOSE 123 mg/dL (70-100); HEMOGLOBIN A1c% 5.9 % (4.27-6.07)
== END 2023-09-10 14:16 | disposition home or self-care (01) ==
LOC: LAB 14:15
PROVIDERS: ATTEND Physician Assistant Medical
DX: I73.9 Peripheral vascular disease, unspecified (principal); Z13.9 Encounter for screening, unspecified; R33.9 Retention of urine, unspecified
CPT/HCPCS: 36415; 80053; 80061; 83036; 83721; 84153; 85025

== ENCOUNTER 2023-09-22 12:40 | Outpatient (CLI) | payer MEDICARE | END 2023-09-22 12:41 | disposition home or self-care (01) | LOC: LAB 12:40 | PROVIDERS: ATTEND Family Medicine | DX: I48.0 Paroxysmal atrial fibrillation (principal) | CPT/HCPCS: 36416; 85610 ==

== ENCOUNTER 2023-09-30 14:23 | Outpatient (CLI) | payer MEDICARE | END 2023-09-30 14:24 | disposition home or self-care (01) | LOC: LAB 14:23 | PROVIDERS: ATTEND Family Medicine | DX: I48.0 Paroxysmal atrial fibrillation (principal) | CPT/HCPCS: 36416; 85610 ==

== ENCOUNTER 2023-10-03 14:33 | Outpatient (CLI) | payer MEDICARE | END 2023-10-03 14:34 | disposition home or self-care (01) | LOC: LAB.F 14:33 | PROVIDERS: ATTEND Internal Medicine | DX: N30.01 Acute cystitis with hematuria (principal) | CPT/HCPCS: 87077; 87086 ==

== ENCOUNTER 2023-10-10 10:18 | Outpatient (CLI) | payer MEDICARE ==
[2023-10-10 15:35] LABS: BASOPHILS # (AUTO) 0.1 10^3/uL (0.0-0.1); BASOPHILS % (AUTO) 0.9 %; EOSINOPHILS # (AUTO) 0.3 10^3/uL (0.0-0.7); EOSINOPHILS % (AUTO) 3.8 %; HCT - HEMATOCRIT 30.1 % (42.0-52.0); HGB - HEMOGLOBIN 9.4 g/dL (14.0-18.0); LYMPHOCYTES # (AUTO) 1.7 10^3/uL (1.5-3.5); LYMPHOCYTES % (AUTO) 19.6 %; MEAN CORPUSCULAR HEMOGLOBIN 30.9 pg (27.0-31.0); MEAN CORPUSCULAR HGB CONC 31.2 g/dL (32.0-36.0); MEAN PLATELET VOLUME 11.1 fL (7.4-11.4); MONOCYTES # (AUTO) 0.9 10^3/uL (0.0-1.0); MONOCYTES % (AUTO) 10.2 %; NEUTROPHILS # (AUTO) 5.5 10^3/uL (1.5-6.6); NEUTROPHILS % (AUTO) 65.3 %; PLT - PLATELET COUNT 235 10^3/uL (130-450); RED BLOOD COUNT 3.04 10^6/uL (4.70-6.10); WHITE BLOOD COUNT 8.5 x10^3/uL (4.8-10.8)
[2023-10-10 16:33] LABS: ALBUMIN 3.8 g/dL (3.2-5.5); ALBUMIN/GLOBULIN RATIO 1.4 (1.0-2.2); BILIRUBIN,TOTAL 0.6 mg/dL (0.2-1.0); CALCIUM 9.1 mg/dL (8.5-10.3); CREATININE 3.6 mg/dL (0.6-1.3); POTASSIUM 4.3 mmol/L (3.5-4.5); TOTAL PROTEIN 6.5 g/dL (6.4-8.9)
[2023-10-10 16:50] LABS: FERRITIN 282.7 ng/mL (23.9-336.2)
== END 2023-10-10 10:19 | disposition home or self-care (01) ==
LOC: LAB.S 10:18
PROVIDERS: ATTEND Internal Medicine
DX: I48.0 Paroxysmal atrial fibrillation (principal); N28.9 Disorder of kidney and ureter, unspecified; R53.83 Other fatigue; N30.01 Acute cystitis with hematuria
CPT/HCPCS: 36415; 80053; 82728; 83540; 84466; 85025; 85610; 87086

== ENCOUNTER 2023-10-14 14:11 | Outpatient (CLI) | payer MEDICARE ==
[2023-10-14 14:34] LABS: BILIRUBIN,URINE NEGATIVE (NEGATIVE); GLUCOSE, URINE (UA) NEGATIVE (NEGATIVE); KETONES,URINE (UA) NEGATIVE (NEGATIVE); LEUKOCYTE ESTERASE, URINE MODERATE (NEGATIVE); NITRITE,URINE NEGATIVE (NEGATIVE); OCCULT BLOOD,URINE TRACE-INTA (NEGATIVE); PROTEIN,URINE 30 mg/dL (NEGATIVE); UROBILINOGEN,URINE 0.2 (NORMAL) E.U./dL (NORMAL)
[2023-10-14 14:41] LABS: BASOPHILS # (AUTO) 0.1 10^3/uL (0.0-0.1); BASOPHILS % (AUTO) 0.9 %; EOSINOPHILS # (AUTO) 0.3 10^3/uL (0.0-0.7); EOSINOPHILS % (AUTO) 3.6 %; HCT - HEMATOCRIT 31.1 % (42.0-52.0); HGB - HEMOGLOBIN 9.9 g/dL (14.0-18.0); LYMPHOCYTES # (AUTO) 1.7 10^3/uL (1.5-3.5); MEAN CORPUSCULAR HEMOGLOBIN 31.8 pg (27.0-31.0); MEAN CORPUSCULAR HGB CONC 31.8 g/dL (32.0-36.0); MEAN PLATELET VOLUME 10.7 fL (7.4-11.4); MONOCYTES # (AUTO) 0.8 10^3/uL (0.0-1.0); MONOCYTES % (AUTO) 10.2 %; NEUTROPHILS # (AUTO) 4.7 10^3/uL (1.5-6.6); NEUTROPHILS % (AUTO) 62.9 %; PLT - PLATELET COUNT 190 10^3/uL (130-450); RED BLOOD COUNT 3.11 10^6/uL (4.70-6.10); WHITE BLOOD COUNT 7.5 x10^3/uL (4.8-10.8)
[2023-10-14 14:42] LABS: BACTERIA,URINE Few /HPF (None Seen); CLARITY,URINE HAZY (CLEAR); RBC,URINE 0-5 /HPF (0-5); SQUAMOUS EPITHELIAL CELL,UR NONE SEEN (<= Few); WBC CLUMPS,URINE PRESENT; WBC,URINE >25 /HPF (0-3)
[2023-10-14 15:04] LABS: ALBUMIN 3.9 g/dL (3.2-5.5); ALBUMIN/GLOBULIN RATIO 1.4 (1.0-2.2); BILIRUBIN,TOTAL 0.6 mg/dL (0.2-1.0); CALCIUM 8.8 mg/dL (8.5-10.3); CREATININE 3.4 mg/dL (0.6-1.3); POTASSIUM 4.2 mmol/L (3.5-4.5); TOTAL PROTEIN 6.6 g/dL (6.4-8.9)
[2023-10-14 15:05] LABS: PROTEIN/CREATININE RATIO,URINE 1.1 (<=0.2)
== END 2023-10-14 14:12 | disposition home or self-care (01) ==
LOC: LAB 14:11
PROVIDERS: ATTEND Internal Medicine Nephrology
DX: N17.0 Acute kidney failure with tubular necrosis (principal); I48.0 Paroxysmal atrial fibrillation
CPT/HCPCS: 36415; 80053; 81001; 82570; 83970; 84156; 85025; 85610; 87086

== ENCOUNTER 2023-10-17 14:02 | Outpatient (CLI) | payer MEDICARE | END 2023-10-17 14:03 | disposition home or self-care (01) | LOC: LAB.S 14:02 | PROVIDERS: ATTEND Family Medicine | DX: I48.0 Paroxysmal atrial fibrillation (principal) | CPT/HCPCS: 36416; 85610 ==

== ENCOUNTER 2023-10-20 13:18 | Outpatient (CLI) | payer MEDICARE | END 2023-10-20 13:19 | disposition home or self-care (01) | LOC: LAB.S 13:18 | PROVIDERS: ATTEND Family Medicine | DX: I48.0 Paroxysmal atrial fibrillation (principal) | CPT/HCPCS: 36416; 85610 ==

== ENCOUNTER 2023-10-23 07:00 | Outpatient (CLI) | payer MEDICARE | END 2023-10-23 23:59 | disposition home or self-care (01) | LOC: LAB.S 07:00 | PROVIDERS: ATTEND Physician Assistant Medical | DX: N30.01 Acute cystitis with hematuria (principal) | CPT/HCPCS: 87086 ==

== ENCOUNTER 2023-10-24 09:50 | Outpatient (CLI) | payer MEDICARE ==
[2023-10-24 14:42] LABS: BASOPHILS # (AUTO) 0.1 10^3/uL (0.0-0.1); BASOPHILS % (AUTO) 0.9 %; EOSINOPHILS # (AUTO) 0.2 10^3/uL (0.0-0.7); EOSINOPHILS % (AUTO) 3.6 %; HCT - HEMATOCRIT 33.2 % (42.0-52.0); HGB - HEMOGLOBIN 10.3 g/dL (14.0-18.0); LYMPHOCYTES # (AUTO) 1.3 10^3/uL (1.5-3.5); LYMPHOCYTES % (AUTO) 19.9 %; MEAN CORPUSCULAR HEMOGLOBIN 31.9 pg (27.0-31.0); MEAN CORPUSCULAR VOLUME 102.8 fL (80.0-94.0); MEAN PLATELET VOLUME 12.1 fL (7.4-11.4); MONOCYTES # (AUTO) 0.6 10^3/uL (0.0-1.0); MONOCYTES % (AUTO) 9.5 %; NEUTROPHILS # (AUTO) 4.4 10^3/uL (1.5-6.6); NEUTROPHILS % (AUTO) 65.9 %; PLT - PLATELET COUNT 132 10^3/uL (130-450); RED BLOOD COUNT 3.23 10^6/uL (4.70-6.10); RED CELL DISTRIBUTION WIDTH 15.5 % (12.0-15.0); WHITE BLOOD COUNT 6.6 x10^3/uL (4.8-10.8)
[2023-10-24 15:49] LABS: ALBUMIN/GLOBULIN RATIO 1.4 (1.0-2.2); BILIRUBIN,TOTAL 0.7 mg/dL (0.2-1.0); CALCIUM 8.8 mg/dL (8.5-10.3); TOTAL PROTEIN 6.8 g/dL (6.4-8.9)
== END 2023-10-24 09:51 | disposition home or self-care (01) ==
LOC: LAB.S 09:50
PROVIDERS: ATTEND Family Medicine
DX: I48.0 Paroxysmal atrial fibrillation (principal); N25.81 Secondary hyperparathyroidism of renal origin; Z13.21 Encounter for screening for nutritional disorder; N19 Unspecified kidney failure; D64.9 Anemia, unspecified
CPT/HCPCS: 36415; 36416; 80053; 82306; 82607; 85025; 85610

== ENCOUNTER 2023-10-31 14:26 | Outpatient (CLI) | payer MEDICARE | END 2023-10-31 14:27 | disposition home or self-care (01) | LOC: LAB.S 14:26 | PROVIDERS: ATTEND Family Medicine | DX: I48.0 Paroxysmal atrial fibrillation (principal) | CPT/HCPCS: 36416; 85610 ==

== ENCOUNTER 2023-11-07 14:07 | Outpatient (CLI) | payer MEDICARE | END 2023-11-07 14:08 | disposition home or self-care (01) | LOC: LAB.S 14:07 | PROVIDERS: ATTEND Family Medicine | DX: I48.0 Paroxysmal atrial fibrillation (principal) | CPT/HCPCS: 36416; 85610 ==

== ENCOUNTER 2023-11-21 07:56 | Outpatient (CLI) | payer MEDICARE | END 2023-11-21 07:57 | disposition home or self-care (01) | LOC: LAB.S 07:56 | PROVIDERS: ATTEND Family Medicine | DX: I48.0 Paroxysmal atrial fibrillation (principal) | CPT/HCPCS: 36416; 85610 ==

== ENCOUNTER 2023-11-26 10:09 | Outpatient (CLI) | payer MEDICARE | END 2023-11-26 10:10 | disposition home or self-care (01) | LOC: LAB.S 10:09 | PROVIDERS: ATTEND Family Medicine | DX: I48.0 Paroxysmal atrial fibrillation (principal) | CPT/HCPCS: 36416; 85610 ==